=== PATIENT | male | born 1950 | race Caucasian/White ===

== ENCOUNTER → 2019-10-22 | Outpatient (CLI) | payer MEDICARE ==
--- NOTE | 2019-10-26 07:26 | PE ---
Nuclear medicine PET/CT HISTORY: Bladder cancer, initial Patient received 10.9 mCi F-18 FDG intravenously in delayed scanning was performed from the skull bas e to the mid thighs. Localization and attenuation correction CT scan was performed No comparisons Neck and chest: There is no cervical or supraclavicular adenopathy. No mediastinal, axillary, or chaparro r adenopathy. Some mild coronary artery calcifications are present. There is no pleural pericardial e ffusion. Prominence of pulmonary artery could be due to pulmonary artery hypertension. There is no ev ident lung mass. No suspicious hypermetabolic uptake. 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 ABDOMEN: No evident liver mass or retroperitoneal adenopathy. Patient is post left nephrectomy. Surgi trey clips are present. Right kidney shows a probable cortical cyst at the lower pole measuring 17 mm. Distal aortic aneurysm at 3.6 cm is noted. Urinary bladder shows some mild increased soft tissue tow ards the level of the trigone on the left. Cannot state as to whether there is increased uptake at th is level due to the urinary uptake. There is a focus of increased uptake within the posterior prostat e on the right, SUV 4.2. No pelvic adenopathy or inguinal adenopathy. Osseous structures show no hypermetabolic uptake. Degenerative disc changes are present in the lower lumbar spine, there is facet arthropathy. IMPRESSION: Postop changes. FDG avid focus within the posterior aspect prostate on the right. Finding s in the chest is described. Some questionable soft tissue, thickening along the posterior lateral bl adder on the left could be postprocedural but is indeterminate.
== END | disposition home or self-care (01) ==
LOC: RADPETMAIN 13:07
PROVIDERS: ATTEND Internal Medicine Hematology & Oncology
DX: C67.2 Malignant neoplasm of lateral wall of bladder (principal); Z98.890 Other specified postprocedural states
CPT/HCPCS: 78815; A9552

== ENCOUNTER → 2019-11-16 | Day surgery (SDC) | payer MEDICARE ==
[2019-11-15 09:07] VITALS: BMI 30.2
[~2019-11-16] MED LIST: CLINDAMYCIN 600 MG in DEXTROSE 5% IN WATER 50 ML IVPB STA; DEXAMETHASONE SOD PHOSPHATE 10 MG/ML 1 ML VIAL IV ONE; GLYCOPYRROLATE 0.2 MG/ML 2 ML VIAL ONE; HEPARIN SODIUM,PORCINE 100 UNIT/ML 5 ML VIAL IV ONE; HEPARIN SODIUM,PORCINE 5,000 UNIT/ML 1 ML VIAL SQ STA; LACTATED RINGERS 1,000 ML IV SCH; LIDOCAINE 1% (10MG/ML) FOR IV START INTRADERMA PRN; LIDOCAINE 1% INJ 10MG/ML (20 ML MDV) ONE; LIDOCAINE 1% INJ 10MG/ML (20 ML MDV) SQ ONE; MIDAZOLAM 2 MG/2 ML VIAL ONE; NALOXONE 0.4 MG/ML 1 ML VIAL IV PRN; ONDANSETRON 4 MG/2 ML VIAL IVP ONE; PROPOFOL 10 MG/ML 20 ML VIAL IV ONE; Pre Op ABX Message 1 EACH MISC MISCELLANE ONE; ePHEDrine SULFATE/0.9% NACL/PF 50 MG/5 ML SYRINGE IV ONE; fentaNYL (PF) 50 MCG/ML 2 ML AMP ONE
--- NOTE | 2019-11-16 14:47 | P.GSHP ---
History of Present Illness H&P Date: 11/16/19 Chief Complaint: Bladder cancer 69-year-old male here today for Port-A-Cath placement. Patient recently diagnosed with bladder cancer. Starting chemotherapy next week. He has not had a port previously. Past Medical History Past Medical History: Atrial Flutter, Asthma, Cancer, COPD, Hypertension, Osteoarthritis (OA), Renal Disease, Sleep Apnea/CPAP/BIPAP, Thyroid Disorder Additional Past Medical History / Comment(s): PAST HX A-FLUTTER-09/29/18, STAGE 2 CKD, GRAVE'S DISEASE, HX BLADDER CANCER. CHRONIC BACK PAIN, History of Any Multi-Drug Resistant Organisms: None Reported Past Surgical History: Cardiac Ablation, Orthopedic Surgery, Tonsillectomy Additional Past Surgical History / Comment(s): BILAT-CTR,. LT EAR SX. BILAT KN EE SCOPES, LT KIDNEY DONATED, BLADDER TUMOR REMOVED, COLONOSCOPY AND EGD Past Anesthesia/Blood Transfusion Reactions: No Reported Reaction Smoking Status: Current every day smoker - Past Family History Brother(s) Family Medical History: Cancer Medications and Allergies Home Medications Medication Instructions Recorded Confirmed Type Aspirin [Adult Low Dose Aspirin EC] 81 mg PO DAILY 11/15/19 11/16/19 History Hydrochlorothiazide 12.5 mg PO DAILY 11/15/19 11/16/19 History Losartan [Cozaar] 50 mg PO DAILY 11/15/19 11/16/19 History Methimazole 10 mg PO MOTUWETHFRSA 11/15/19 11/16/19 History Sotalol [Betapace] 60 mg PO QAM 11/15/19 11/16/19 History Sotalol [Betapace] 120 mg PO HS 11/15/19 11/16/19 History Allergies Allergy/AdvReac Type Severity Reaction Status Date / Time bee venom protein (honey bee) Allergy Anaphylaxis Verified 11/16/19 13:16 cefaclor [From [facility]] Allergy Rash/Hives Verified 11/16/19 13:16 ibuprofen Allergy only has 1 Verified 11/16/19 13:16 kidney morphine AdvReac Nausea & Verified 11/16/19 13:16 Vomiting Surgical - Exam Vital Signs Temp Pulse Resp BP Pulse Ox 98.3 F 97 18 139/77 97 11/16/19 13:19 11/16/19 13:19 11/16/19 13:19 11/16/19 13:19 11/16/19 13:19 Physical exam: General: Well-developed, well-nourished HEENT: Normocephalic, sclerae nonicteric Abdomen: Nontender, nondistended Extremities: No edema Neuro: Alert and oriented Assessment and Plan (1) Bladder cancer Narrative/Plan: 69-year-old male with bladder cancer. We'll proceed with Port-A-Cath placement at this time. Risks of bleeding, infection, DVT, pneumothorax, catheter malfunction, anesthesia related complications were discussed. The patient und erstands and wishes to proceed. Current Visit: Yes Status: Acute Code(s): C67.9 - MALIGNANT NEOPLASM OF BLADDER, UNSPECIFIED SNOMED Code(s): 563676208
[2019-11-16 16:03] VITALS: TEMP 96.9
--- NOTE | 2019-11-16 16:33 | FL ---
Fluoroscopy INDICATION: Pain FINDINGS: Fluoroscopy time: 4 seconds. Images obtained: 2. IMPRESSIONS: 1. Documentation of fluoroscopy.
--- NOTE | 2019-11-16 16:35 | XR ---
EXAMINATION TYPE: XR chest 1V confirm line [facility] DATE OF EXAM: 11/16/2019 COMPARISON: None INDICATION: Catheter placement TECHNIQUE: Single frontal view of the chest is obtained. FINDINGS: The heart size is normal. The pulmonary vasculature is normal. The lungs are clear. No pneumothorax is evident. Catheter is been placed on the right with the tip in the superior vena ca va region. IMPRESSION: 1. No pneumothorax post right-sided catheter placement. Tip is within the region of the superior vena cava.
[2019-11-16 16:36] VITALS: RESP 16
[2019-11-16 17:04] VITALS: BP 116/75; PULSE 66
--- NOTE | 2019-11-16 20:51 | P.OP ---
Date of Procedure: 11/16/19 Procedure(s) Performed: PREOPERATIVE DIAGNOSIS: Bladder cancer POSTOPERATIVE DIAGNOSIS: Same PROCEDURE: Port-A-Cath placement with fluoroscopic and ultrasound guidance SURGEON: Denisha EBL: Minimal ANESTHESIA: General COMPLICATIONS: None OPERATIVE PROCEDURE: Patient was brought and placed on the operative table in the supine position. The patient was sedated per anesthesia that time. The chest and neck were prepped and draped in usual sterile fashion. The ultrasound probe was used to identify the location of the right internal jugular vein. The skin was localized with lidocaine. The Seldinger needle was advanced into the IJ under ultrasound guidance. The wire was advanced through the needle under fluoroscopic guidance into the superior vena cava. A port pocket was created in the right infraclavicular location. The catheter was tunneled from the wire entrance site to the port pocket. The port was then connected to the catheter. The dilator introducer was threaded over the guidewire. The guidewire and dilator were then removed. The catheter was advanced through the introducer and introducer was then removed. The tip was seen to be in the right atrial junction via fluoroscopy. A picture of the radiograph showing the tip at the radial digital junction was taken. Port was flushed with both saline and a Hep- Lock solution. There was good flow both in and out of the port. The port was sutured in underlying tissues using 3-0 silk sutures. The subcutaneous tissues were reapproximated using 3-0 Vicryl sutures and the skin at both locations using 4-0 Monocryl sutures. Skin glue and sterile dressings then applied. DISPOSITION: Stable to recovery room
== END ==
LOC: OR 13:05
PROVIDERS: ATTEND Surgery
DX: C67.9 Malignant neoplasm of bladder, unspecified (principal); I48.91 Unspecified atrial fibrillation; J44.9 Chronic obstructive pulmonary disease, unspecified; M19.90 Unspecified osteoarthritis, unspecified site; E05.00 Thyrotoxicosis with diffuse goiter without thyrotoxic crisis or storm; I12.9 Hypertensive chronic kidney disease with stage 1 through stage 4 chronic kidney disease, or unspecified chronic kidney disease; N18.2 Chronic kidney disease, stage 2 (mild); G89.29 Other chronic pain; M54.9 Dorsalgia, unspecified; F17.200 Nicotine dependence, unspecified, uncomplicated; Z79.899 Other long term (current) drug therapy; Z88.5 Allergy status to narcotic agent; Z88.1 Allergy status to other antibiotic agents; Z88.6 Allergy status to analgesic agent; Z98.890 Other specified postprocedural states; Z90.89 Acquired absence of other organs; Z80.9 Family history of malignant neoplasm, unspecified; Z79.82 Long term (current) use of aspirin; Z91.030 Bee allergy status; Z52.4 Kidney donor
CPT/HCPCS: 77001; 36561; J1644; J1642; J1100; J2405; J2001

== ENCOUNTER 2019-12-07 07:55 | Emergency (ER) | payer MEDICARE ==
[2019-12-07 08:04] VITALS: TEMP 97.7
[2019-12-07 08:25] VITALS: RESP 18
[2019-12-07] MEDS ORDERED: SODIUM CHLORIDE 0.9% 1,000 ML IV STA (08:28)
--- NOTE | 2019-12-07 08:31 | ED ---
General Adult HPI - General Chief complaint: Nausea/Vomiting/Diarrhea Stated complaint: SOB/cancer pt Time Seen by Provider: 12/07/19 08:10 Source: patient, RN notes reviewed Mode of arrival: wheelchair Limitations: no limitations - History of Present Illness Initial comments: This a 69-year-old male presents emergency Department chief complaint of diar heather, chest pain. Patient states symptoms started around 2 AM. Patient states that persistent profuse watery diarrheal denies any melanotic stools denies any hematochezia. Patient states that slight nausea only takes chronic Zofran. Patient denies any chills. Patient does admit that he is currently being treated for bladder cancer is receiving chemotherapy and radiation last chemo last week. Patient states his oncologist is Dr. Clement. Patient states he has no bowel pain other than mild cramping. Patient does admit that is a smoker has chronic shortness breath. COPD. Patient states his pain in his chest is different. Patient denies any headache or dizziness. Patient states that is not had diarrhea associated with his other chemotherapeutic treatments. - Related Data Home Medications Medication Instructions Recorded Confirmed Aspirin [Adult Low Dose Aspirin EC] 81 mg PO DAILY 11/15/19 11/16/19 Hydrochlorothiazide 12.5 mg PO DAILY 11/15/19 11/16/19 Losartan [Cozaar] 50 mg PO DAILY 11/15/19 11/16/19 Methimazole 10 mg PO MOTUWETHFRSA 11/15/19 11/16/19 Sotalol [Betapace] 60 mg PO QAM 11/15/19 11/16/19 Sotalol [Betapace] 120 mg PO HS 11/15/19 11/16/19 Allergies Allergy/AdvReac Type Severity Reaction Status Date / Time bee venom protein (honey bee) Allergy Anaphylaxis Verified 12/07/19 08:00 [facility] Allergy Rash/Hives Verified 12/07/19 08:00 ibuprofen Allergy only has 1 Verified 12/07/19 08:00 kidney morphine AdvReac Nausea & Verified 12/07/19 08:00 Vomiting Review of Systems ROS Statement: Those systems with pertinent positive or pertinent negative responses have been documented in the HPI. ROS Other: All systems not noted in ROS Statement are negative. Past Medical History Past Medical History: Asthma, COPD Additional Past Medical History / Comment(s): bladder CA, pt states he donated one kidney History of Any Multi-Drug Resistant Organisms: None Reported Past Surgical History: Unable to Obtain Past Psychological History: No Psychological Hx Reported Smoking Status: Current every day smoker Past Alcohol Use History: None Reported Past Drug Use History: None Reported General Exam Limitations: no limitations General appearance: alert, in no apparent distress Head exam: Present: atraumatic, normocephalic, normal inspection Eye exam: Present: normal appearance, PERRL, EOMI. Absent: scleral icterus, conjunctival injection, periorbital swelling ENT exam: Present: normal exam, normal oropharynx, mucous membranes moist Neck exam: Present: normal inspection, full ROM. Absent: tenderness, m eningismus, lymphadenopathy Respiratory exam: Present: wheezes. Absent: normal lung sounds bilaterally, respiratory distress, rales, rhonchi, stridor Cardiovascular Exam: Present: regular rate, normal rhythm, normal heart sounds. Absent: systolic murmur, diastolic murmur, rubs, gallop, clicks GI/Abdominal exam: Present: soft, tenderness (Mild abdominal tenderness), normal bowel sounds. Absent: distended, guarding, rebound, rigid Back exam: Absent: CVA tenderness (R), CVA tenderness (L) Neurological exam: Present: alert, oriented X3, CN II-XII intact Skin exam: Present: warm, dry, intact, normal color. Absent: rash Course Vital Signs 12/07/19 12/07/19 12/07/19 08:01 08:23 10:10 Temperature 97.7 F Pulse Rate 68 60 59 L Respiratory 16 18 18 Rate Blood Pressure 99/60 107/69 100/85 O2 Sat by Pulse 99 100 99 Oximetry EKG Findings - EKG Comments: EKG Findings:: EKG performed at 8:15 normal sinus rhythm rate of 61 MS 160 QRS 100 QT/[id number] Medical Decision Making - Medical Decision Making 61-year-old male presented for diarrhea, chest pain shortness breath. Patient's had labs CT of the chest ordered to rule out PE patient refuses CT of the chest. I did have a long discussion along with polysom tech regarding the need for this study that there could possibly be a blood clot given that he has cancer, chest pain or shortness of breath no other cause at this time. Patient is angry, understands the risk that he may from a blood clot in his lung. Patient states that he just wants to go home. I did recommend admission to the hospital again patient refuses and signs out AGAINST MEDICAL ADVICE understanding that his risk his . - Lab Data Result diagrams: 12/07/19 10:03 12/07/19 10:03 Lab Results 12/07/19 12/07/19 12/07/19 Range/Units 10:03 10:03 10:03 WBC 6.2 (3.8-10.6) k/uL RBC 4.33 (4.30-5.90) m/uL Hgb 13.0 (13.0-17.5) gm/dL Hct 41.0 (39.0-53.0) % MCV 94.8 (80.0-100.0) fL MCH 30.1 (25.0-35.0) pg MCHC 31.7 (31.0-37.0) g/dL RDW 14.4 (11.5-15.5) % Plt Count 187 (150-450) k/uL Neutrophils % 75 % Lymphocytes % 20 % Monocytes % 4 % Eosinophils % 1 % Basophils % 0 % Neutrophils # 4.6 (1.3-7.7) k/uL Lymphocytes # 1.2 (1.0-4.8) k/uL Monocytes # 0.2 (0-1.0) k/uL Eosinophils # 0.0 (0-0.7) k/uL Basophils # 0.0 (0-0.2) k/uL PT 9.8 (9.0-12.0) sec INR 0.9 (<1.2) APTT 23.6 (22.0-30.0) sec Sodium 130 L (137-145) mmol/L Potassium 4.6 (3.5-5.1) mmol/L Chloride 98 (98-107) mmol/L Carbon Dioxide 26 (22-30) mmol/L Anion Gap 6 mmol/L BUN 34 H (9-20) mg/dL Creatinine 0.88 (0.66-1.25) mg/dL Est GFR (CKD-EPI)AfAm >90 (>60 ml/min/1.73 sqM) Est GFR (CKD-EPI)NonAf 89 (>60 ml/min/1.73 sqM) Glucose 84 (74-99) mg/dL Plasma Lactic Acid Fabricio (0.7-2.0) mmol/L Calcium 8.3 L (8.4-10.2) mg/dL Total Bilirubin 0.8 (0.2-1.3) mg/dL AST 15 L (17-59) U/L ALT 14 (4-49) U/L Alkaline Phosphatase 45 (38-126) U/L Creatine Kinase <20 L (55-170) U/L Troponin I (0.000-0.034) ng/mL Total Protein 6.1 L (6.3-8.2) g/dL Albumin 3.5 (3.5-5.0) g/dL Amylase 124 H (30-110) U/L Lipase 170 (23-300) U/L Urine Color Urine Appearance (Clear) Urine pH (5.0-8.0) Ur Specific [place] (1.001-1.035) Urine Protein (Negative) Urine Glucose (UA) (Negative) Urine Ketones (Negative) Urine Blood (Negative) Urine Nitrite (Negative) Urine Bilirubin (Negative) Urine Urobilinogen (<2.0) mg/dL Ur Leukocyte Esterase (Negative) 12/07/19 12/07/19 12/07/19 Range/Units 10:03 10:03 10:17 WBC (3.8-10.6) k/uL RBC (4.30-5.90) m/uL Hgb (13.0-17.5) gm/dL Hct (39.0-53.0) % MCV (80.0-100.0) fL MCH (25.0-35.0) pg MCHC (31.0-37.0) g/dL RDW (11.5-15.5) % Plt Count (150-450) k/uL Neutrophils % % Lymphocytes % % Monocytes % % Eosinophils % % Basophils % % Neutrophils # (1.3-7.7) k/uL Lymphocytes # (1.0-4.8) k/uL Monocytes # (0-1.0) k/uL Eosinophils # (0-0.7) k/uL Basophils # (0-0.2) k/uL PT (9.0-12.0) sec INR (<1.2) APTT (22.0-30.0) sec Sodium (137-145) mmol/L Potassium (3.5-5.1) mmol/L Chloride (98-107) mmol/L Carbon Dioxide (22-30) mmol/L Anion Gap mmol/L BUN (9-20) mg/dL Creatinine (0.66-1.25) mg/dL Est GFR (CKD-EPI)AfAm (>60 ml/min/1.73 sqM) Est GFR (CKD-EPI)NonAf (>60 ml/min/1.73 sqM) Glucose (74-99) mg/dL Plasma Lactic Acid Fabricio 0.8 (0.7-2.0) mmol/L Calcium (8.4-10.2) mg/dL Total Bilirubin (0.2-1.3) mg/dL AST (17-59) U/L ALT (4-49) U/L Alkaline Phosphatase (38-126) U/L Creatine Kinase (55-170) U/L Troponin I <0.012 (0.000-0.034) ng/mL Total Protein (6.3-8.2) g/dL Albumin (3.5-5.0) g/dL Amylase (30-110) U/L Lipase (23-300) U/L Urine Color Light Yellow Urine Appearance Clear (Clear) Urine pH 5.0 (5.0-8.0) Ur Specific [place] 1.014 (1.001-1.035) Urine Protein Negative (Negative) Urine Glucose (UA) Negative (Negative) Urine Ketones Negative (Negative) Urine Blood Negative (Negative) Urine Nitrite Negative (Negative) Urine Bilirubin Negative (Negative) Urine Urobilinogen <2.0 (<2.0) mg/dL Ur Leukocyte Esterase Negative (Negative) Disposition Clinical Impression: Diarrhea, Chest pain, Bladder cancer Disposition: Left Against Medical Advice Referrals: Mayito Baker MD [Primary Care Provider] - 1-2 days
[2019-12-07 10:10] VITALS: BP 100/85; PULSE 59
[2019-12-07 10:17] LABS: Basophils % (A) 0 %; Eosinophils % (A) 1 %; Lymphocytes # (A) 1.2 k/uL (1.0-4.8); Lymphocytes % (A) 20 %; MCH 30.1 pg (25.0-35.0); MCHC 31.7 g/dL (31.0-37.0); MCV 94.8 fL (80.0-100.0); Mean Platelet Volume 7.4; Monocytes # (A) 0.2 k/uL (0-1.0); Monocytes % (A) 4 %; Neutrophils # (A) 4.6 k/uL (1.3-7.7); Neutrophils % (A) 75 %; Platelet Count 187 k/uL (150-450); RBC 4.33 m/uL (4.30-5.90); RDW 14.4 % (11.5-15.5); WBC 6.2 k/uL (3.8-10.6)
[2019-12-07 10:26] LABS: ALT 14 U/L (4-49); AST 15 U/L (17-59); African American GFR (CKD) >90 (>60 ml/min/1.73 sqM); Albumin 3.5 g/dL (3.5-5.0); Alkaline Phosphatase 45 U/L (38-126); Amylase 124 U/L (30-110); Anion Gap 6 mmol/L; Blood Urea Nitrogen 34 mg/dL (9-20); Calcium 8.3 mg/dL (8.4-10.2); Carbon Dioxide 26 mmol/L (22-30); Chloride 98 mmol/L (98-107); Creatine Kinase <20 U/L (55-170); Glucose 84 mg/dL (74-99); Non-African American GFR(CKD) 89 (>60 ml/min/1.73 sqM); Potassium 4.6 mmol/L (3.5-5.1); Sodium 130 mmol/L (137-145); Total Bilirubin 0.8 mg/dL (0.2-1.3); Total Protein 6.1 g/dL (6.3-8.2)
[2019-12-07 10:29] LABS: INR 0.9 (<1.2); Partial Thromboplastin Time 23.6 sec (22.0-30.0); Prothrombin Time 9.8 sec (9.0-12.0)
[2019-12-07 10:39] LABS: Appearance,Urine Clear (Clear); Bilirubin,Urine Negative (Negative); Blood,Urine Negative (Negative); Color,Urine Light Yellow; Glucose,Urine (UA) Negative (Negative); Ketones,Urine Negative (Negative); Leukocyte Esterase,Urine Negative (Negative); Nitrite,Urine Negative (Negative); Protein,Urine Negative (Negative); Specific Gravity,Urine 1.014 (1.001-1.035); Urobilinogen,Urine <2.0 mg/dL (<2.0)
--- NOTE | 2019-12-07 10:41 | XR ---
EXAMINATION TYPE: XR chest 2V DATE OF EXAM: 12/07/2019 COMPARISON: 11/16/2019 HISTORY: 69-year-old male with chest pain TECHNIQUE: PA and lateral views FINDINGS: Heart upper limits of normal in size. Aorta and pulmonary vasculature within normal limits. Right ant erior chest wall injection port with catheter tip at the mid SVC level. Some strandy areas of atelect asis. No consolidation or pleural effusion is seen. Either postsurgical or posttraumatic deformity to the distal right clavicle, unchanged. IMPRESSION: Some strandy areas of atelectasis. No definite acute process seen.
== END 2019-12-07 11:32 | disposition left against medical advice (07) ==
LOC: EC 07:55
DX: C67.9 Malignant neoplasm of bladder, unspecified (principal); R07.9 Chest pain, unspecified; R19.7 Diarrhea, unspecified; J44.9 Chronic obstructive pulmonary disease, unspecified; F17.200 Nicotine dependence, unspecified, uncomplicated; Z79.899 Other long term (current) drug therapy; Z79.82 Long term (current) use of aspirin; Z88.6 Allergy status to analgesic agent; Z88.5 Allergy status to narcotic agent; Z91.038 Other insect allergy status; Z88.1 Allergy status to other antibiotic agents; Z53.29 Procedure and treatment not carried out because of patient's decision for other reasons
CPT/HCPCS: 36415; 71046; 80053; 81003; 82150; 82550; 83605; 83690; 84484; 85025; 85610; 85730; 93005; 96360; 99285

== ENCOUNTER → 2020-06-22 | Outpatient (CLI) | payer MEDICARE ==
--- NOTE | 2020-06-22 13:55 | XR ---
EXAMINATION TYPE: XR cervical spine comp DATE OF EXAM: 06/22/2020 COMPARISON: None HISTORY: 69-year-old male M5 4.2, cervicalgia TECHNIQUE: 5 views FINDINGS: Limited odontoid view shows no gross abnormality. No predental space widening or prevertebral soft ti ssue swelling. Degenerative change at the C1 dens articulation. There is grade 1 anterolisthesis at C 5-C6. Moderate distention plate degenerative change lower cervical spine. Multilevel facet and uncove rtebral joint arthropathy. Changes result in variable mild bony neuroforaminal narrowing on both side s, more moderate on the left at C3-C4 and C4-C5. The cervicothoracic junction is obscured by the fran ent's shoulders and not assessed. Partially visualized right anterior chest wall injection port. IMPRESSION: Moderate spondylotic change especially mid and lower cervical spine. Degenerative grade 1 anterolisth esis C5-C6. Variable mild bony neuroforaminal narrowing throughout, moderate on the left at C3-C4 and C4-C5. Note that the cervicothoracic junction is obscured by the patient's shoulders and not assessed.
== END | disposition home or self-care (01) ==
LOC: RADXRMAIN 13:29
PROVIDERS: ATTEND Nurse Practitioner Adult Health
DX: M48.02 Spinal stenosis, cervical region (principal); M43.12 Spondylolisthesis, cervical region; M47.812 Spondylosis without myelopathy or radiculopathy, cervical region; C67.9 Malignant neoplasm of bladder, unspecified; N18.9 Chronic kidney disease, unspecified
CPT/HCPCS: 72050

== ENCOUNTER → 2020-06-30 | Outpatient (CLI) | payer MEDICARE ==
--- NOTE | 2020-06-30 14:24 | PE ---
Nuclear medicine PET/CT HISTORY: C 67.9 Bladder carcinoma, subsequent, lung nodule, R 91.1 Patient received 11.9 mCi F-18 FDG intravenously delayed scanning was performed from the skull base t o the mid thighs. Localization and attenuation correction CT scan was performed. Correlation prior nuclear medicine PET/CT 10/22/2019 Chest and neck: Anterior cervical chain shows an enlarged node is asymmetric on the left, axial image 49 short axis measurement is 17 mm, no suspicious uptake noted however. Noted more prominently than on prior exam but shows possible fatty hilus. There is no supraclavicular adenopathy. No pleural or p ericardial effusion. No mediastinal, axillary, or hilar adenopathy. No suspicious uptake. No evident lung mass. ABDOMEN: Aneurysmal dilation noted the 3.9 cm in the infrarenal location. No retroperitoneal adenopat hy. No suspicious uptake. No ascites. Patient shows post left nephrectomy change. Urinary bladder is small and shows a thickened wall posteriorly related to patient's diagnosis. No pelvic adenopathy or free fluid. Osseous structures show no suspicious uptake. IMPRESSION: Left cervical lymph node has increased slightly in size, there is no suspicious uptake id entified.
== END | disposition home or self-care (01) ==
LOC: RADPETMAIN 08:14
PROVIDERS: ATTEND Internal Medicine Hematology & Oncology
DX: C67.8 Malignant neoplasm of overlapping sites of bladder (principal); R59.0 Localized enlarged lymph nodes; R91.1 Solitary pulmonary nodule
CPT/HCPCS: 78815; A9552

== ENCOUNTER → 2020-07-19 | Outpatient (CLI) | payer MEDICARE ==
[2020-07-19 12:03] LABS: Basophils % (A) 0 %; Eosinophils # (A) 0.1 k/uL (0-0.7); Eosinophils % (A) 2 %; HCT 45.8 % (39.0-53.0); HGB 14.6 gm/dL (13.0-17.5); Lymphocytes # (A) 0.9 k/uL (1.0-4.8); Lymphocytes % (A) 19 %; MCH 31.3 pg (25.0-35.0); MCV 97.9 fL (80.0-100.0); Mean Platelet Volume 7.5; Monocytes # (A) 0.5 k/uL (0-1.0); Monocytes % (A) 10 %; Neutrophils # (A) 3.2 k/uL (1.3-7.7); Neutrophils % (A) 64 %; Platelet Count 167 k/uL (150-450); RBC 4.67 m/uL (4.30-5.90); WBC 4.9 k/uL (3.8-10.6)
[2020-07-19 12:19] LABS: Calcium 9.1 mg/dL (8.4-10.2); Potassium 4.6 mmol/L (3.5-5.1)
== END | disposition home or self-care (01) ==
LOC: LABPAT 10:30
PROVIDERS: ATTEND Urology
DX: Z01.818 Encounter for other preprocedural examination (principal); C67.9 Malignant neoplasm of bladder, unspecified
CPT/HCPCS: 80048; 85025

== ENCOUNTER 2020-07-27 07:38 | Day surgery (SDC) | payer MEDICARE ==
[2020-07-21 13:58] VITALS: BMI 32.2
--- NOTE | 2020-07-27 06:10 | P.GSHP ---
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 He was treated with chemoradiation. Cystoscopy in February 2020 showed mild edema over the right hemitrigone, and repeat cystoscopy in May 2020 showed small tumors overlying the left ureteral orifice. Urine cytology was negative. The patient chose not to undergo bladder tumor resection, but has recently experienced hematuria and is now agreeable to undergoing a TURBT. 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 History of Any Multi-Drug Resistant Organisms: None Reported Past Surgical History: Unable to Obtain Past Psychological History: No Psychological Hx Reported Past Alcohol Use History: None Reported Past Drug Use History: None Reported - Past Family History Mother Family Medical History: Unable to Obtain Brother(s) Family Medical History: Cancer Medications and Allergies Home Medications Medication Instructions Recorded Confirmed Type Aspirin [Adult Low Dose Aspirin EC] 81 mg PO DAILY 11/15/19 07/21/20 History Losartan [Cozaar] 50 mg PO DAILY 11/15/19 07/21/20 History Sotalol [Betapace] 60 mg PO QAM 11/15/19 07/21/20 History Sotalol [Betapace] 120 mg PO HS 11/15/19 07/21/20 History methIMAzole [Methimazole] 10 mg PO MOTUWETHFR 11/15/19 07/21/20 History Albuterol Inhaler [Ventolin Hfa 2 puff INHALATION RT-TID PRN 07/21/20 07/21/20 History Inhaler] Albuterol Nebulized [Ventolin 2.5 mg INHALATION Q6H PRN 07/21/20 07/21/20 History Nebulized] Allergies Allergy/AdvReac Type Severity Reaction Status Date / Time bee venom protein (honey bee) Allergy Anaphylaxis Verified 12/07/19 08:00 cefaclor [From [facility]] Allergy Rash/Hives Verified 12/07/19 08:00 ibuprofen Allergy only has 1 Verified 12/07/19 08:00 kidney morphine AdvReac Nausea & Verified 07/07/20 08:00 Vomiting Surgical - Exam - General well developed, well nourished, no distress - Respiratory normal respiratory effort - Genitourinary normal penis with no external lesions, testicles non-tender - Psychiatric oriented to time, oriented to person, oriented to place, speech is normal, memory intact Assessment and Plan (1) Malignant neoplasm of bladder, unspecified Status: Acute Code(s): C67.9 - MALIGNANT NEOPLASM OF BLADDER, UNSPECIFIED SNOMED Code(s): 492492579 Plan: Cystoscopy, TURBT. The procedure has been reviewed in detail with the patient and his daughter. They understand risks to include anesthesia, bleeding, infection, bladder perforation, and urinary retention.
[~2020-07-27 07:38] MED LIST changes: -CLINDAMYCIN 600 MG in DEXTROSE 5% IN WATER 50 ML IVPB STA; +CLINDAMYCIN 900 MG in DEXTROSE 5% IN WATER 50 ML IVPB PRN; -DEXAMETHASONE SOD PHOSPHATE 10 MG/ML 1 ML VIAL IV ONE; +GENTAMICIN 440 MG in SODIUM CHLORIDE 0.9% 100 ML IVPB PRN; -GLYCOPYRROLATE 0.2 MG/ML 2 ML VIAL ONE; -HEPARIN SODIUM,PORCINE 100 UNIT/ML 5 ML VIAL IV ONE; -HEPARIN SODIUM,PORCINE 5,000 UNIT/ML 1 ML VIAL SQ STA; +HYDROmorphone 0.5 MG/0.5 ML SYRINGE IVP PRN; -LACTATED RINGERS 1,000 ML IV SCH; -LIDOCAINE 1% INJ 10MG/ML (20 ML MDV) ONE; -LIDOCAINE 1% INJ 10MG/ML (20 ML MDV) SQ ONE; -MIDAZOLAM 2 MG/2 ML VIAL ONE; -NALOXONE 0.4 MG/ML 1 ML VIAL IV PRN; -PROPOFOL 10 MG/ML 20 ML VIAL IV ONE; -Pre Op ABX Message 1 EACH MISC MISCELLANE ONE; -ePHEDrine SULFATE/0.9% NACL/PF 50 MG/5 ML SYRINGE IV ONE; -fentaNYL (PF) 50 MCG/ML 2 ML AMP ONE
[2020-07-27] MEDS: LACTATED RINGERS 1,000 ML IV SCH ×2 (08:08→08:50)
[2020-07-27] MEDS ORDERED: GLYCOPYRROLATE 0.2 MG/ML 2 ML VIAL ONE (08:45)
[2020-07-27] MEDS ORDERED: PROPOFOL 10 MG/ML 20 ML VIAL IV ONE (08:45)
[2020-07-27] MEDS ORDERED: LIDOCAINE 1% INJ 10MG/ML (20 ML MDV) ONE (08:45)
[2020-07-27] MEDS ORDERED: SUCCINYLCHOLINE CHLORIDE 100 MG/5 ML SYR IV ONE (08:45)
[2020-07-27] MEDS ORDERED: fentaNYL (PF) 50 MCG/ML 2 ML AMP ONE (08:45)
[2020-07-27] MEDS ORDERED: WATER FOR INJECTION, STERILE 10 ML VIAL IV ONE (08:45)
[2020-07-27] MEDS ORDERED: ePHEDrine SULFATE/0.9% NACL/PF 50 MG/5 ML SYRINGE IV ONE (08:45)
--- NOTE | 2020-07-27 09:52 | P.OP ---
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 He was treated with chemoradiation. Cystoscopy in February 2020 showed mild edema over the right hemitrigone, and repeat cystoscopy in May 2020 showed small tumors overlying the left ureteral orifice. Urine cytology was negative. The patient chose not to undergo bladder tumor resection, but has recently experienced hematuria and is now agreeable to undergoing a TURBT. Operative Findings: Raised tissue left hemitrigone. Description of Procedure: The patient was taken in the operating room and placed in the dorsal lithotomy position, with his legs supported in Ross stirrups. The external genitalia was prepped and draped sterilely. The 25-[place] ACM[employer] resectoscope sheath was introduced into the bladder under direct vision. The prostate was partially obstructed. No urothelial changes were seen within the prostatic urethra. The bladder was inspected. The right ureteral orifice appeared normal, and clear urine effluxed from it. The left hemitrigone was raised. The left ureteral orifice was not identified. The remainder of the bladder appeared normal. Using the bipolar cutting loop, the left hemitrigone was resected down to the muscle. The left ureteral orifice was identified following resection, and clear urine effluxed from it. Excellent hemostasis was attained. Cauterization around the left ureteral orifice was avoided. The resected tissue was saved and sent for pathologic examination. The bladder was emptied and the resectoscope removed. The patient tolerated the procedure well. He was taken to the recovery room in stable condition.
[2020-07-27 10:08] VITALS: TEMP 96.8
[2020-07-27 11:38] VITALS: RESP 16
[2020-07-27] MEDS ORDERED: HYDROcodone/APAP 5-325MG 1 EACH TAB ONE (11:44)
[2020-07-27] MEDS ORDERED: HYDROcodone/APAP 5-325MG 1 EACH TAB PO ONE (11:45)
[2020-07-27 12:08] VITALS: BP 134/81; PULSE 61
== END 2020-07-27 12:21 | disposition home or self-care (01) ==
LOC: OR 07:38
PROVIDERS: ATTEND Urology
DX: C67.9 Malignant neoplasm of bladder, unspecified (principal); C80.1 Malignant (primary) neoplasm, unspecified; J44.9 Chronic obstructive pulmonary disease, unspecified; I48.91 Unspecified atrial fibrillation; Z90.5 Acquired absence of kidney; E07.9 Disorder of thyroid, unspecified; N28.9 Disorder of kidney and ureter, unspecified; Z80.9 Family history of malignant neoplasm, unspecified; F17.200 Nicotine dependence, unspecified, uncomplicated; Z99.81 Dependence on supplemental oxygen; K21.9 Gastro-esophageal reflux disease without esophagitis; Z79.82 Long term (current) use of aspirin; Z79.899 Other long term (current) drug therapy; Z88.5 Allergy status to narcotic agent; Z88.6 Allergy status to analgesic agent; Z88.1 Allergy status to other antibiotic agents; Z91.030 Bee allergy status
CPT/HCPCS: 88307; 52235; J2405; J2001; J3010; J1580; J0330; J2704

== ENCOUNTER → 2021-03-23 | Outpatient (CLI) | payer MEDICARE ==
--- NOTE | 2021-03-26 09:58 | PE ---
EXAMINATION TYPE: PET CT fusion skull to thigh DATE OF EXAM: 03/23/2021 COMPARISON: Prior PET/CT June 30, 2020 and older study October 22, 2019 HISTORY: History of bladder cancer diagnosed October 2018 with solitary pulmonary nodule TECHNIQUE: Following the intravenous administration of 10.75 mCi of F-18 FDG, whole body images are performed from the skull base to the midthigh. Images are reviewed on the computer in the coronal, a xial, and sagittal planes. Reconstructed rotating images are created on independent workstation and reviewed on the computer. A localization and attenuation correction CT is performed in conjunction with the PET scan. Blood glucose level equals 76. SCAN: Initial Scan FINDINGS: SKULL BASE AND NECK: No new areas of abnormal hypermetabolic uptake. CHEST, MEDIASTINUM, AND HILAR REGION: No new areas of abnormal hypermetabolic uptake. ABDOMEN AND PELVIS: Normal excretion including along course of right ureter. No new areas of abnormal hypermetabolic uptake. OSSEOUS STRUCTURES: No new areas of abnormal hypermetabolic uptake. OTHER CT: Stable right internal jugular Mediport catheter. Ascending aortic aneurysm up to 4.1 cm axi al image 91. There is tiny 4 mm posterior right upper lung nodule axial image 54. No hypermetabolic n odules. Mild calcified plaque in the abdominal aorta with up to 3.4 cm aneurysm maximum 170. Left kidney is surgically absent. Bladder shows new calcific density along the left posterior inferior aspect of unc ertain etiology with mild fat stranding and wall thickening redemonstrated. Correlate clinically. Pro state gland stable and upper limits of normal in size. IMPRESSION: No new areas of abnormal hypermetabolic uptake.
== END | disposition home or self-care (01) ==
LOC: RADPETMAIN 10:32
PROVIDERS: ATTEND Internal Medicine Hematology & Oncology
DX: C67.9 Malignant neoplasm of bladder, unspecified (principal); R91.1 Solitary pulmonary nodule
CPT/HCPCS: 78815; A9552

== ENCOUNTER → 2021-07-27 | Outpatient (CLI) | payer MEDICARE ==
--- NOTE | 2021-07-27 12:26 | XR ---
EXAMINATION TYPE: XR chest 2V DATE OF EXAM: 07/27/2021 COMPARISON: 12/07/2019 HISTORY: Shortness of breath TECHNIQUE: Frontal and lateral views of the chest are obtained. FINDINGS: Scattered senescent parenchymal changes noted. Hyperinflation compatible with COPD. No evidence for infiltrate. No evidence for atelectasis. Heart size is stable. Mediastinal structures are stable and grossly unremarkable. No evidence for hilar prominence. Degenerative changes dorsal spine. IMPRESSION: 1. No evidence for acute pulmonary disease.
== END | disposition home or self-care (01) ==
LOC: RADXRMAIN 10:58
PROVIDERS: ATTEND Physical Medicine & Rehabilitation
DX: C67.9 Malignant neoplasm of bladder, unspecified (principal); R44.3 Hallucinations, unspecified; E87.1 Hypo-osmolality and hyponatremia; R91.1 Solitary pulmonary nodule
CPT/HCPCS: 71046

== ENCOUNTER 2021-07-31 10:30 | Inpatient (IN) | payer MEDICARE ==
--- NOTE | 2021-07-31 11:40 | XR ---
EXAMINATION TYPE: XR chest 2V DATE OF EXAM: 07/31/2021 COMPARISON: Chest x-ray July 27, 2021 HISTORY: Recent COVID with difficulty breathing. History of bladder cancer. TECHNIQUE: Frontal and lateral views of the chest are obtained. FINDINGS: Stable right internal jugular Mediport catheter. There is right basilar opacity. Left lung remains clear. No pleural effusion or pneumothorax seen bilaterally. The cardiac silhouette size is m ildly enlarged. The osseous structures are intact. IMPRESSION: Right basilar opacity could reflect acute infiltrate and/or atelectasis.
[2021-07-31] MEDS ORDERED: IPRATROPIUM-ALBUTEROL 3 ML NEB INHALATION STA (11:50)
[2021-07-31] MEDS ORDERED: methylPREDNISolone SOD SUCCI 125 MG/2 ML VIAL IV STA (11:51)
[2021-07-31] MEDS ORDERED: FUROSEMIDE 10 MG/ML 10 ML VIAL IV STA (11:51)
--- NOTE | 2021-07-31 12:17 | ED ---
General Adult HPI - General Chief complaint: Shortness of Breath Stated complaint: TJ Time Seen by Provider: 07/31/21 10:55 Source: patient, RN notes reviewed, old records reviewed Mode of arrival: ambulatory Limitations: no limitations - History of Present Illness Initial comments: This is a 70-year-old male with past medical history significant for COPD and son states he also had a history of hypercarbia. Son states is often had to be placed on BiPAP. Patient states the difficulty breathing is been ongoing for the last week or so but last night he started having some altered mental status and being extremely fatigued. Patient has had no recent fever chills per patient denies any chest pain or palpitations. Patient has had no abdominal manolo n patient denies nausea vomiting or diarrhea. Patient has increased swelling to both legs. Patient denies any recent injury or trauma. - Related Data Home Medications Medication Instructions Recorded Confirmed Aspirin [Adult Low Dose Aspirin EC] 81 mg PO DAILY 11/15/19 07/27/20 Losartan [Cozaar] 50 mg PO DAILY 11/15/19 07/27/20 Sotalol [Betapace] 60 mg PO QAM 11/15/19 07/27/20 Sotalol [Betapace] 120 mg PO HS 11/15/19 07/27/20 methIMAzole [Methimazole] 10 mg PO MOTUWETHFR 11/15/19 07/27/20 Albuterol Inhaler [Ventolin Hfa 2 puff INHALATION RT-TID PRN 07/21/20 07/27/20 Inhaler] Albuterol Nebulized [Ventolin 2.5 mg INHALATION Q6H PRN 07/21/20 07/27/20 Nebulized] Allergies Allergy/AdvReac Type Severity Reaction Status Date / Time bee venom protein (honey bee) Allergy Anaphylaxis Verified 07/31/21 10:45 cefaclor [From Ceclor] Allergy Rash/Hives Verified 07/31/21 10:45 ibuprofen Allergy only has 1 Verified 07/31/21 10:45 kidney morphine AdvReac Nausea & Verified 07/31/21 10:45 Vomiting Review of Systems ROS Statement: Those systems with pertinent positive or pertinent negative responses have been documented in the HPI. ROS Other: All systems not noted in ROS Statement are negative. 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 Patient is nontoxic and well- hydrated and is in moderate distress. ENT: Neck is soft and supple. No significant lymphadenopathy is noted. Oropharynx is clear. Moist mucous membranes. Neck has full range of motion without eliciting any pain. EYES: The sclera were anicteric and conjunctiva were pink and moist. Extraocular movements were intact and pupils were equal round and reactive to light. Ey elids were unremarkable. PULMONARY: Unlabored respirations. Good breath sounds bilaterally. No audible rales rhonchi or wheezing was noted. CARDIOVASCULAR: Patient is tachycardic at about 120 beats a minute. ABDOMEN: Patient is significantly diminished breath sounds bilaterally. SKIN: Skin is clear with no lesions or rashes and otherwise unremarkable. NEUROLOGIC: Patient is alert and oriented x3. Cranial nerves II through XII are grossly intact. Motor and sensory are also intact. Normal speech, volume and content. Symmetrical smile. MUSCULOSKELETAL: Normal extremities with adequate strength and full range of motion. Patient has 2+ edema bilaterally LYMPHATICS: No significant lymphadenopathy is noted PSYCHIATRIC: Normal psychiatric evaluation. Limitations: no limitations Course Vital Signs 07/31/21 07/31/21 07/31/21 10:41 12:00 12:05 Temperature 97.2 F L Pulse Rate 94 124 H Respiratory 18 20 20 Rate Blood Pressure 157/90 148/112 O2 Sat by Pulse 90 L 99 Oximetry 07/31/21 07/31/21 07/31/21 12:08 12:30 12:46 Temperature Pulse Rate 116 H 114 H 90 Respiratory Rate Blood Pressure 148/112 O2 Sat by Pulse 100 100 Oximetry 07/31/21 07/31/21 13:00 13:17 Temperature Pulse Rate 95 Respiratory Rate Blood Pressure 117/91 O2 Sat by Pulse 100 Oximetry Medical Decision Making - Medical Decision Making EKG shows atrial fibrillation at 86 bpm QRS is 109 QT interval 358 QTC is 411. Patient's EKG shows no ST segment elevation or depression. Chest x-ray shows no acute abnormality. Patient was placed on BiPAP immediately. Patient had an ABG dinner showed a pCO2 of 85. I went back in and reevaluate the patient he was doing much better and was more alert. Patient did receive 3 albuterol treatments with Atrovent as well as Solu-Medrol in the emergency department. Albuterol and Solu-Medrol will be continued on a floor as well as antibiotics. Patient did get a gram of [facility] emergency department. I spoke with [facility] hospitalist agreed to admit the patient admitted the patient wrote admitting orders. - Lab Data Result diagrams: 07/31/21 12:03 07/31/21 12:03 Lab Results 07/31/21 07/31/21 07/31/21 Range/Units 12:03 12:03 12:03 WBC 6.2 (3.8-10.6) k/uL RBC 4.62 (4.30-5.90) m/uL Hgb 15.2 (13.0-17.5) gm/dL Hct 44.6 (39.0-53.0) % MCV 96.5 (80.0-100.0) fL MCH 32.9 (25.0-35.0) pg MCHC 34.1 (31.0-37.0) g/dL RDW 15.7 H (11.5-15.5) % Plt Count 170 (150-450) k/uL MPV 8.1 Neutrophils % 73 % Lymphocytes % 14 % Monocytes % 8 % Eosinophils % 1 % Basophils % 1 % Neutrophils # 4.5 (1.3-7.7) k/uL Lymphocytes # 0.9 L (1.0-4.8) k/uL Monocytes # 0.5 (0-1.0) k/uL Eosinophils # 0.0 (0-0.7) k/uL Basophils # 0.0 (0-0.2) k/uL PT 10.9 (9.0-12.0) sec INR 1.0 (<1.2) APTT 31.8 H (22.0-30.0) sec Sample Site ABG pH (7.35-7.45) ABG pCO2 (35-45) mmHg ABG pO2 (83-108) mmHg ABG HCO3 (21-25) mmol/L ABG Total CO2 (19-24) mmol/L ABG O2 Saturation (94-97) % ABG Base Excess mmol/L Ross Test FiO2 % Sodium 128 L (137-145) mmol/L Potassium 4.2 (3.5-5.1) mmol/L Chloride 90 L (98-107) mmol/L Carbon Dioxide 35 H (22-30) mmol/L Anion Gap 3 mmol/L BUN 11 (9-20) mg/dL Creatinine 0.83 (0.66-1.25) mg/dL Est GFR (CKD-EPI)AfAm >90 (>60 ml/min/1.73 sqM) Est GFR (CKD-EPI)NonAf 90 (>60 ml/min/1.73 sqM) Glucose 104 H (74-99) mg/dL Calcium 8.0 L (8.4-10.2) mg/dL Total Bilirubin 1.3 (0.2-1.3) mg/dL AST 23 (17-59) U/L ALT 24 (4-49) U/L Alkaline Phosphatase 61 (38-126) U/L Troponin I (0.000-0.034) ng/mL NT-Pro-B Natriuret Pep pg/mL Total Protein 6.6 (6.3-8.2) g/dL Albumin 3.6 (3.5-5.0) g/dL 07/31/21 07/31/21 07/31/21 Range/Units 12:03 12:03 12:28 WBC (3.8-10.6) k/uL RBC (4.30-5.90) m/uL Hgb (13.0-17.5) gm/dL Hct (39.0-53.0) % MCV (80.0-100.0) fL MCH (25.0-35.0) pg MCHC (31.0-37.0) g/dL RDW (11.5-15.5) % Plt Count (150-450) k/uL MPV Neutrophils % % Lymphocytes % % Monocytes % % Eosinophils % % Basophils % % Neutrophils # (1.3-7.7) k/uL Lymphocytes # (1.0-4.8) k/uL Monocytes # (0-1.0) k/uL Eosinophils # (0-0.7) k/uL Basophils # (0-0.2) k/uL PT (9.0-12.0) sec INR (<1.2) APTT (22.0-30.0) sec Sample Site RRAD ABG pH 7.24 L (7.35-7.45) ABG pCO2 85 H* (35-45) mmHg ABG pO2 131 H (83-108) mmHg ABG HCO3 36 H (21-25) mmol/L ABG Total CO2 39 H (19-24) mmol/L ABG O2 Saturation 97.9 H (94-97) % ABG Base Excess 8.9 mmol/L Ross Test Yes FiO2 50 % Sodium (137-145) mmol/L Potassium (3.5-5.1) mmol/L Chloride (98-107) mmol/L Carbon Dioxide (22-30) mmol/L Anion Gap mmol/L BUN (9-20) mg/dL Creatinine (0.66-1.25) mg/dL Est GFR (CKD-EPI)AfAm (>60 ml/min/1.73 sqM) Est GFR (CKD-EPI)NonAf (>60 ml/min/1.73 sqM) Glucose (74-99) mg/dL Calcium (8.4-10.2) mg/dL Total Bilirubin (0.2-1.3) mg/dL AST (17-59) U/L ALT (4-49) U/L Alkaline Phosphatase (38-126) U/L Troponin I <0.012 (0.000-0.034) ng/mL NT-Pro-B Natriuret Pep 1660 pg/mL Total Protein (6.3-8.2) g/dL Albumin (3.5-5.0) g/dL Critical Care Time Critical Care Time: Yes Total Critical Care Time: 35 Disposition Clinical Impression: Acute exacerbation of chronic obstructive pulmonary disease, Hypercarbia, Hy ponatremia Disposition: ADMITTED IP TO THIS [facility] Time of Disposition: 13:22
[2021-07-31 12:22] LABS: Partial Thromboplastin Time 31.8 sec (22.0-30.0); Prothrombin Time 10.9 sec (9.0-12.0)
[2021-07-31 12:28] LABS: ALT 24 U/L (4-49); AST 23 U/L (17-59); African American GFR (CKD) >90 (>60 ml/min/1.73 sqM); Albumin 3.6 g/dL (3.5-5.0); Alkaline Phosphatase 61 U/L (38-126); Anion Gap 3 mmol/L; Blood Urea Nitrogen 11 mg/dL (9-20); Carbon Dioxide 35 mmol/L (22-30); Chloride 90 mmol/L (98-107); Glucose 104 mg/dL (74-99); Non-African American GFR(CKD) 90 (>60 ml/min/1.73 sqM); Potassium 4.2 mmol/L (3.5-5.1); Sodium 128 mmol/L (137-145); Total Bilirubin 1.3 mg/dL (0.2-1.3); Total Protein 6.6 g/dL (6.3-8.2)
[2021-07-31 12:37] LABS: Basophils % (A) 1 %; Eosinophils % (A) 1 %; HCT 44.6 % (39.0-53.0); HGB 15.2 gm/dL (13.0-17.5); Lymphocytes # (A) 0.9 k/uL (1.0-4.8); Lymphocytes % (A) 14 %; MCH 32.9 pg (25.0-35.0); MCHC 34.1 g/dL (31.0-37.0); MCV 96.5 fL (80.0-100.0); Mean Platelet Volume 8.1; Monocytes # (A) 0.5 k/uL (0-1.0); Monocytes % (A) 8 %; Neutrophils # (A) 4.5 k/uL (1.3-7.7); Neutrophils % (A) 73 %; Platelet Count 170 k/uL (150-450); RBC 4.62 m/uL (4.30-5.90); RDW 15.7 % (11.5-15.5); WBC 6.2 k/uL (3.8-10.6)
[2021-07-31 12:39] LABS: ABG Base Excess 8.9 mmol/L; ABG HCO3 36 mmol/L (21-25); ABG Oxygen Saturation 97.9 % (94-97); ABG PH 7.24 (7.35-7.45); ABG PO2 131 mmHg (83-108); ABG TCO2 39 mmol/L (19-24); Allen Test Performed? Yes
[2021-07-31 12:42] LABS: ABG PCO2 85 mmHg (35-45)
[2021-07-31] MEDS ORDERED: IPRATROPIUM-ALBUTEROL 3 ML NEB INHALATION PRN (13:23)
[2021-07-31] MEDS ORDERED: LEVOFLOXACIN 750 MG TAB PO SCH (14:00)
[2021-07-31] MEDS ORDERED: HEPARIN SODIUM,PORCINE/PF 5,000 UNIT/0.5 ML SYRINGE SQ SCH (16:00)
[2021-07-31 16:27] LABS: Glucose,Whole Blood 110 mg/dL (75-99)
--- NOTE | 2021-07-31 17:50 | P.CNPUL ---
History of Present Illness Consult date: 07/31/21 Reason for consult: dyspnea History of present illness: 70-year-old male patient with known history of COPD and bladder cancer who was being evaluated and seen at the oncologist office for ongoing immunotherapy as the patient is receiving keytruda therapy. The patient has already received 2 doses. On today's evaluation, the patient was found to be lethargic, having altered mentation, hallucinations and lethargy. Based on that, he was asked to come into the hospital for further evaluation and he was sent to the emergency department. He is known to have chronic hypercapnia related to his COPD. He also has obstructive sleep apnea. He hasn't been able to use his CPAP as the patient did not have the appropriate mask. His periodontal assistant and sleep specialist are from [facility] in [place]. The patient has been maintained on Trelegy Ellipta as maintenance regarding his COPD. He has had previous episodes of hypercapnic respiratory failure requiring BiPAP therapy and previous hospitalization at [facility]. The patient is a DO NOT INTUBATE CODE STATUS. Currently, the patient is on a BiPAP at a pressure of 14/6 with an FiO2 of 40%. Is able to generate a tidal volume of 4 50 mL and his minute ventilation is around 9 L per minute. He seems to be quite comfortable on the BiPAP. His chest x-ray showed a Mediport in the right chest. The patient also has a right basal opacity could reflect atelectasis. There is also some background COPD. Osseous structures are intact. The patient has mild card iomegaly. No evidence of any pneumothorax or consolidations. At this point in time, has a white cell count of 6.2 with a hemoglobin of 15.2 and a platelet count of 170. Blood gases prior to BiPAP therapy showed a pH of 7.24 with a pCO2 of 85 and pO2 of 131. Sodium level is at 128 and the family tells me that the patient has had issues with hyponatremia earlier. He was started on salt tablets. Serum bicarb is 35 consistent with chronic hypercapnic respiratory failure and chronic metabolic alkalosis. LFTs are normal. ProBNP level is 1660 and a TSH level is at 0.967. Troponins are negative and the proBNP level is 1660 and the patient has been in atrial fibrillation with rapid ventricular response and the current heart rate is irregular at the rate of 120. He is arousable. Goes to sleep if left unstimulated. No reported chest pain. No angina. No palpitation. He has developed increased swelling in lower extremity is bilaterally. The patient COVID 19 infection back in 2021 and the patient was given monoclonal antibodies. He was also treated with steroids. 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 at this point in time, obesity, chronic hyponatremia, COVID is infection in June 2021, recovered History of Any Multi-Drug Resistant Organisms: None Reported Past Surgical History: Unable to Obtain Additional Past Surgical History / Comment(s): TUBT/transurethral resection of bladder tumor, nephrectomy for kidney donation, elbow surgery Smoking Status: Current every day smoker Medications and Allergies Home Medications Medication Instructions Recorded Confirmed Type Aspirin [Adult Low Dose Aspirin EC] 81 mg PO DAILY 11/15/19 07/31/21 History Losartan [Cozaar] 50 mg PO DAILY 11/15/19 07/31/21 History Albuterol Nebulized [Ventolin 2.5 mg INHALATION RT-Q4H PRN 07/21/20 07/31/21 History Nebulized] Cyanocobalamin (Vitamin B-12) 1,000 mcg PO DAILY 07/31/21 07/31/21 History [Vitamin B-12] Fluticasone/Umeclidin/Vilanter 1 puff INHALATION RT-DAILY 07/31/21 07/31/21 History [Trelegy Ellipta 100-62.5-25] Hydrocortisone [Cortef] 10 mg PO HS 07/31/21 07/31/21 History Hydrocortisone [Cortef] 20 mg PO DAILY 07/31/21 07/31/21 History Levothyroxine Sodium [Synthroid] 100 mcg PO MOTUWETHFRSA 07/31/21 07/31/21 History Levothyroxine Sodium [Synthroid] 200 mcg PO MIRZA 07/31/21 07/31/21 History Montelukast [Singulair] 10 mg PO HS 07/31/21 07/31/21 History Omeprazole 20 mg PO DAILY 07/31/21 07/31/21 History Sotalol [Betapace] 80 mg PO BID 07/31/21 07/31/21 History traZODone HCL 150 mg PO HS PRN 07/31/21 07/31/21 History Allergies Allergy/AdvReac Type Severity Reaction Status Date / Time bee venom protein (honey bee) Allergy Anaphylaxis Verified 07/31/21 14:12 cefaclor [From Ceclor] Allergy Rash/Hives Verified 07/31/21 14:12 ibuprofen Allergy only has 1 Verified 07/31/21 14:12 kidney morphine AdvReac Nausea & Verified 07/31/21 14:12 Vomiting Physical Exam Vitals: Vital Signs Temp Pulse Resp BP Pulse Ox 07/31/21 15:30 101 H 131/89 95 07/31/21 14:30 129 H 92 L 07/31/21 14:00 140 H 07/31/21 13:30 120 H 117/91 78 L 07/31/21 13:17 117/91 07/31/21 13:00 95 100 07/31/21 12:46 90 07/31/21 12:30 114 H 148/112 100 07/31/21 12:08 116 H 100 07/31/21 12:05 20 07/31/21 12:00 124 H 20 148/112 99 07/31/21 10:41 97.2 F L 94 18 157/90 90 L Intake and Output 07/31/21 07/31/21 07/31/21 06:59 14:59 22:59 Other: Weight 111.13 kg 111.13 kg Patient is lethargic, somnolent, tolerating BiPAP at a pressure of 14/6 with a fullface mask and FiO2 of 40%. Tolerating the BiPAP mask without any major difficulties. Arousable. Head exam was generally normal. There was no scleral icterus or corneal arcus. Mucous membranes were moist. Neck was supple and without jugular venous distension, thyromegaly, or carotid bruits. Carotids were easily palpable bilaterally. There was no adenopathy. Significant crowding of posterior pharyngeal metabolic S4 Lungs sounds are diminished and the patient is scheduled extremity cellulitis of the lung his bilaterally. Overall breath sounds are quite diminished Cardiac exam revealed the PMI to be normally situated and sized. The rhythm was regular and no extrasystoles were noted during several minutes of auscultation. The first and second heart sounds irregular and the patient is tachycardic consistent with atrial fibrillation. No rubs. No murmurs. Abdominal exam revealed normal bowel sounds. The abdomen was soft, non-tender, and without masses, organomegaly, or appreciable enlargement of the abdominal aorta. Extremities revealed +1 pitting edema and there is no cyanosis or clubbing. Neurologically the patient is lethargic, confounded, CO2 narcosis, neurologic exam is nonfocal and the patient is withdrawing to pain. Initial 4 extremity is without any limitation. Pupils are equal reactive to light. No facial asymmetry. Results - Laboratory Findings CBC and BMP: 07/31/21 12:03 07/31/21 12:03 ABG ABG pH 7.24 (7.35-7.45) L 07/31/21 12:28 ABG pCO2 85 mmHg (35-45) H* 07/31/21 12:28 ABG pO2 131 mmHg (83-108) H 07/31/21 12:28 ABG O2 Saturation 97.9 % (94-97) H 07/31/21 12:28 PT/INR, D-dimer PT 10.9 sec (9.0-12.0) 07/31/21 12:03 INR 1.0 (<1.2) 07/31/21 12:03 Abnormal lab findings: Abnormal Labs 07/31/21 07/31/21 07/31/21 12:03 12:03 12:03 RDW 15.7 H Lymphocytes # 0.9 L APTT 31.8 H ABG pH ABG pCO2 ABG pO2 ABG HCO3 ABG Total CO2 ABG O2 Saturation Sodium 128 L Chloride 90 L Carbon Dioxide 35 H Glucose 104 H POC Glucose (mg/dL) Calcium 8.0 L 07/31/21 07/31/21 12:28 16:25 RDW Lymphocytes # APTT ABG pH 7.24 L ABG pCO2 85 H* ABG pO2 131 H ABG HCO3 36 H ABG Total CO2 39 H ABG O2 Saturation 97.9 H Sodium Chloride Carbon Dioxide Glucose POC Glucose (mg/dL) 110 H Calcium - Diagnostic Findings Chest x-ray: image reviewed Assessment and Plan Plan: 1 acute on chronic hypoxic/hypercapnic respiratory failure due to COPD exacerbation, possibly with a component of CHF. Patient is currently on BiPAP for respiratory support. 2 chronic hypoxic respiratory failure. Oxygen 3 L per minute nasal cannula secondary to COPD 3 advanced COPD with chronic hypoxic respiratory failure and the patient has a component of chronic hypercapnic respiratory failure with secondary metabolic alkalosis. The patient has been maintained on Trelegy Ellipta on outpatient basis 4 chronic atrial fibrillation with rapid ventricular response at time of admission. Note that the patient has not been on any form of anticoagulant on outpatient basis and he was maintained on sotalol 5 CHF suspected with increased interstitial edema, elevation of the proBNP level and increased lower extremity edema. 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 Repeat blood On the BiPAP Put the patient on DuoNeb nebulized treatments around the clock 4 times a day IV Solu Medrol 60 mg every 6 hours Empiric antibiotic coverage with Levaquin Check blood cultures Check pro calcitonin level 2-D echocardiogram to assess LV function Hold IV heparin for now till we have a better understanding for the reasons that the patient was not placed on anticoagulation regarding his chronic atrial fibrillation. Monitor sodium level Monitor urine output and electrolytes and renal function Restart Synthroid in the IV form cutting the dose by half Hold immunotherapy for now DO NOT INTUBATE CODE STATUS Had a lengthy discussion with the daughter the bedside We'll continue to follow. Note that most of the patient's previous evaluation and treatment has been done through [facility] in [facility].
[2021-07-31] MEDS: DILTIAZEM 125 MG in SODIUM CHLORIDE 0.9% 100 ML IV SCH (18:18)
[2021-07-31] MEDS: ENOXAPARIN 40 MG/0.4 ML SYRINGE SQ SCH (18:42)
[2021-07-31] MEDS: methylPREDNISolone SOD SUCCI 125 MG/2 ML VIAL IV SCH ×2 (18:42→23:13)
[2021-07-31] MEDS: PANTOPRAZOLE 40 MG/10 ML VIAL IVP SCH (18:42)
[2021-07-31] MEDS ORDERED: CEFDINIR 300 MG CAP PO SCH (21:00)
[2021-07-31] MEDS: FUROSEMIDE 10 MG/ML 4 ML VIAL IV SCH (21:37)
--- NOTE | 2021-07-31 23:53 | P.HPIM ---
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 Patient has been lethargic and drowsy. Was very short of breath and had to place on BiPAP more often as per his son. Patient has been having symptoms for the past 1 week. No fever no chills. Cough without any sputum production. No nausea vomiting abdominal pain or diarrhea. Patient also has been having increasing swelling of both legs. Chest x-ray showed right basilar opacity could reflect acute infiltrate/atelectasis. EKG showed atrial fibrillation with rate controlled at 86. ABGs on admission showed pH of 7.24 PCO2 85 PO2 131 and bicarb is 36. Patient was placed on BiPAP in the ER. Other laboratory data showed WBC 6.2 hemoglobin 15.1 platelets 170 sodium 128 potassium 4.2 chloride 90 bicarb is 35 BUN 11 and creatinine 0.83 and blood sugar is 104 calcium 8.0 liver enzymes are elevated troponin x1 - proBNP is 1660 TSH 0.967. Review of Systems Complete review of systems could not be obtained from the patient except as per HPI. Past Medical History Past Medical History: Asthma, COPD Additional Past Medical History / Comment(s): bladder CA, pt states he donated one kidney History of Any Multi-Drug Resistant Organisms: None Reported Past Surgical History: Unable to Obtain Past Psychological History: No Psychological Hx Reported Smoking Status: Current every day smoker Past Alcohol Use History: None Reported Past Drug Use History: None Reported Medications and Allergies Home Medications Medication Instructions Recorded Confirmed Type Aspirin [Adult Low Dose Aspirin EC] 81 mg PO DAILY 11/15/19 07/31/21 History Losartan [Cozaar] 50 mg PO DAILY 11/15/19 07/31/21 History Albuterol Nebulized [Ventolin 2.5 mg INHALATION RT-Q4H PRN 07/21/20 07/31/21 History Nebulized] Cyanocobalamin (Vitamin B-12) 1,000 mcg PO DAILY 07/31/21 07/31/21 History [Vitamin B-12] Fluticasone/Umeclidin/Vilanter 1 puff INHALATION RT-DAILY 07/31/21 07/31/21 History [Trelegy Ellipta 100-62.5-25] Hydrocortisone [Cortef] 10 mg PO HS 07/31/21 07/31/21 History Hydrocortisone [Cortef] 20 mg PO DAILY 07/31/21 07/31/21 History Levothyroxine Sodium [Synthroid] 100 mcg PO MOTUWETHFRSA 07/31/21 07/31/21 Histo ry Levothyroxine Sodium [Synthroid] 200 mcg PO MIRZA 07/31/21 07/31/21 History Montelukast [Singulair] 10 mg PO HS 07/31/21 07/31/21 History Omeprazole 20 mg PO DAILY 07/31/21 07/31/21 History Sotalol [Betapace] 80 mg PO BID 07/31/21 07/31/21 History traZODone HCL 150 mg PO HS PRN 07/31/21 07/31/21 History Allergies Allergy/AdvReac Type Severity Reaction Status Date / Time bee venom protein (honey bee) Allergy Anaphylaxis Verified 07/31/21 14:12 cefaclor [From [facility]] Allergy Rash/Hives Verified 07/31/21 14:12 ibuprofen Allergy only has 1 Verified 07/31/21 14:12 kidney morphine AdvReac Nausea & Verified 07/31/21 14:12 Vomiting Physical Exam Vitals: Vital Signs Temp Pulse Resp BP Pulse Ox 07/31/21 13:17 117/91 07/31/21 13:00 95 100 07/31/21 12:46 90 07/31/21 12:30 114 H 148/112 100 07/31/21 12:08 116 H 100 07/31/21 12:05 20 07/31/21 12:00 124 H 20 148/112 99 07/31/21 10:41 97.2 F L 94 18 157/90 90 L Intake and Output 07/30/21 07/31/21 07/31/21 22:59 06:59 14:59 Other: Weight 111.13 kg PHYSICAL EXAMINATION: Patient is he is lethargic and drowsy. On BiPAP currently. Could not communicate. HEENT: Normocephalic. Neck is supple. Pupils reactive. Nostrils clear. Oral cavity is moist. Neck reveals no JVD, carotid bruits, or thyromegaly. CHEST EXAMINATION: Trachea is central. Symmetrical expansion. Diminished bilateral air entry.. CARDIAC: Normal S1, S2 with no gallops. No murmurs ABDOMEN: Soft. Obese bowel sounds present. No organomegaly. No abdominal bruits. Extremities: Bilateral 2+ edema. No clubbing or cyanosis Neurologically: Patient is lethargic and drowsy. No gross focal neurological deficit. Skin: No rash or skin lesions. Psychiatric: Could not be assessed at this time. Musculoskeletal: No joint swelling or deformity. Results CBC & Chem 7: 07/31/21 12:03 07/31/21 12:03 Labs: Abnormal Lab Results - Last 24 Hours (Table) 07/31/21 07/31/21 07/31/21 Range/Units 12:03 12:03 12:03 RDW 15.7 H (11.5-15.5) % Lymphocytes # 0.9 L (1.0-4.8) k/uL APTT 31.8 H (22.0-30.0) sec ABG pH (7.35-7.45) ABG pCO2 (35-45) mmHg ABG pO2 (83-108) mmHg ABG HCO3 (21-25) mmol/L ABG Total CO2 (19-24) mmol/L ABG O2 Saturation (94-97) % Sodium 128 L (137-145) mmol/L Chloride 90 L (98-107) mmol/L Carbon Dioxide 35 H (22-30) mmol/L Glucose 104 H (74-99) mg/dL Calcium 8.0 L (8.4-10.2) mg/dL 07/31/21 Range/Units 12:28 RDW (11.5-15.5) % Lymphocytes # (1.0-4.8) k/uL APTT (22.0-30.0) sec ABG pH 7.24 L (7.35-7.45) ABG pCO2 85 H* (35-45) mmHg ABG pO2 131 H (83-108) mmHg ABG HCO3 36 H (21-25) mmol/L ABG Total CO2 39 H (19-24) mmol/L ABG O2 Saturation 97.9 H (94-97) % Sodium (137-145) mmol/L Chloride (98-107) mmol/L Carbon Dioxide (22-30) mmol/L Glucose (74-99) mg/dL Calcium (8.4-10.2) mg/dL Thrombosis Risk Factor Assmnt - DVT/VTE Prophylaxis DVT/VTE Prophylaxis: Pharmacologic Prophylaxis ordered Assessment and Plan Assessment: Acute on chronic hypoxic and hypercapnic respiratory failure secondary to COPD exacerbation and possible CHF with increased leg swelling and elevated BNP. Currently requiring BiPAP. Recent COVID-19 infection in June 2021 Altered mental status/metabolic encephalopathy due to hypercapnia Hyponatremia Advanced COPD and chronic hypoxic respiratory failure requiring BiPAP intermittently. Chronic atrial fibrillation rate controlled with sotalol at home. Not on anticoagulation. Obstructive sleep apnea on CPAP at home History of Graves' disease treated with methimazole and is currently on thyroid supplementation. 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 History of bladder cancer status post TURBT and currently on immunotherapy. DVT prophylaxis with heparin subcu Plan: Patient is being continued on BiPAP. Continue with IV Solu-Medrol 60 mg every 6 hourly and duo nebs scheduled dose. Continue with antibiotics above Levaquin will be changed to IV. Patient was given a dose of IV Lasix. Follow-up TSH level. 2D echocardiogram was ordered. Continue with home medications and monitor closely. Prognosis poor at this time. CODE STATUS is DNR/DNI. Time with Patient: Greater than 30
[2021-08-01] MEDS: methylPREDNISolone SOD SUCCI 125 MG/2 ML VIAL IV SCH ×4 (05:20→23:18)
[2021-08-01 05:57] LABS: Basophils % (A) 0 %; Eosinophils % (A) 0 %; HCT 50.7 % (39.0-53.0); HGB 16.8 gm/dL (13.0-17.5); Lymphocytes # (A) 0.5 k/uL (1.0-4.8); Lymphocytes % (A) 10 %; MCH 32.3 pg (25.0-35.0); MCHC 33.1 g/dL (31.0-37.0); MCV 97.7 fL (80.0-100.0); Mean Platelet Volume 7.6; Monocytes # (A) 0.2 k/uL (0-1.0); Monocytes % (A) 3 %; Neutrophils # (A) 4.1 k/uL (1.3-7.7); Neutrophils % (A) 86 %; Platelet Count 163 k/uL (150-450); RBC 5.19 m/uL (4.30-5.90); WBC 4.8 k/uL (3.8-10.6)
[2021-08-01 06:10] LABS: African American GFR (CKD) >90 (>60 ml/min/1.73 sqM); Anion Gap 6 mmol/L; Blood Urea Nitrogen 15 mg/dL (9-20); Calcium 8.3 mg/dL (8.4-10.2); Carbon Dioxide 37 mmol/L (22-30); Chloride 86 mmol/L (98-107); Glucose 129 mg/dL (74-99); Non-African American GFR(CKD) 80 (>60 ml/min/1.73 sqM); Potassium 4.3 mmol/L (3.5-5.1); Sodium 129 mmol/L (137-145)
[2021-08-01] MEDS ORDERED: SOTALOL 80 MG TAB PO SCH (09:15)
[2021-08-01] MEDS: ENOXAPARIN 40 MG/0.4 ML SYRINGE SQ SCH (09:44)
[2021-08-01] MEDS: LEVOTHYROXINE IVP 100 MCG/5 ML VIAL IV SCH (09:45)
[2021-08-01] MEDS: PANTOPRAZOLE 40 MG/10 ML VIAL IVP SCH (09:45)
--- NOTE | 2021-08-01 10:00 | ECHOF ---
Referral Reason:chf MEASUREMENTS -------- HEIGHT: 160.0 cm WEIGHT: 106.1 kg BP: RVIDd: 4.3 cm (< 3.3) IVSd: 1.5 cm (0.6 - 1.1) LVIDd: 5.2 cm (3.9 - 5.3) LVPWd: 1.5 cm (0.6 - 1.1) IVSs: 2.0 cm LVIDs: 4.4 cm LVPWs: 1.7 cm LA Diam: 4.0 cm (2.7 - 3.8) Ao Diam: 4.0 cm (2.0 - 3.7) AV Cusp: 2.2 cm (1.5 - 2.6) LA Diam: 5.2 cm (2.7 - 3.8) MV EXCURSION: 14.317 mm (> 18.000) MV EF SLOPE: 88 mm/s (70 - 150) EPSS: 1.0 cm RAP: 10.00 mmHg RVSP: 48.28 mmHg FINDINGS -------- Undetermined rhythm. This was a technically adequate study. The left ventricular size is normal. There is moderate concentric left ventricular hypertrophy. O verall left ventricular systolic function is low-normal with, an EF between 50 - 55 %. The right ventricle is severely enlarged. The left atrial size is normal. The right atrial size is normal. There is mild aortic valve sclerosis. Trace to mild aortic regurgitation. Mild mitral annular calcification present. Mild mitral regurgitation is present. Mild tricuspid regurgitation present. There is mild to moderate pulmonary hypertension. The right ventricular systolic pressure, as measured by Doppler, is 48.28mmHg. Trace/mild (physiologic) pulmonic regurgitation. There is no pericardial effusion. CONCLUSIONS -------- 1. The left ventricular size is normal. 2. There is moderate concentric left ventricular hypertrophy. 3. Overall left ventricular systolic function is low-normal with, an EF between 50 - 55 %. 4. The right ventricle is severely enlarged. 5. The left atrial size is normal. 6. The right atrial size is normal. 7. There is mild aortic valve sclerosis. 8. Trace to mild aortic regurgitation. 9. Mild mitral annular calcification present. 10. Mild mitral regurgitation is present. 11. Mild tricuspid regurgitation present. 12. There is mild to moderate pulmonary hypertension. 13. The right ventricular systolic pressure, as measured by Doppler, is 48.28mmHg. 14. Trace/mild (physiologic) pulmonic regurgitation. 15. There is no pericardial effusion. LAB INSTRUCTOR: Clarisa Noel RDCS
[2021-08-01 10:28] LABS: ABG Base Excess 14.5 mmol/L; ABG Oxygen Saturation 87.4 % (94-97); ABG PH 7.34 (7.35-7.45); ABG TCO2 43 mmol/L (19-24)
[2021-08-01 10:32] LABS: ABG HCO3 40 mmol/L (21-25); ABG PCO2 75 mmHg (35-45); ABG PO2 55 mmHg (83-108); Allen Test Performed? YES
--- NOTE | 2021-08-01 12:03 | P.PN ---
Subjective Progress Note Date: 08/01/21 70-year-old male patient with known history of COPD and bladder cancer who was being evaluated and seen at the oncologist office for ongoing immunotherapy as the patient is receiving keytruda therapy. The patient has already received 2 doses. On today's evaluation, the patient was found to be lethargic, having altered mentation, hallucinations and lethargy. Based on that, he was asked to come into the hospital for further evaluation and he was sent to the emergency department. He is known to have chronic hypercapnia related to his COPD. He also has obstructive sleep apnea. He hasn't been able to use his CPAP as the patient did not have the appropriate mask. 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 The patient has been maintained on Trelegy Ellipta as maintenance regarding his COPD. He has had previous episodes of hypercapnic respiratory failure requiring BiPAP therapy and previous hospitalization at [facility]. The patient is a DO NOT INTUBATE CODE STATUS. Currently, the patient is on a BiPAP at a pressure of 14/6 with an FiO2 of 40%. Is able to generate a tidal volume of 4 50 mL and his minute ventilation is around 9 L per minute. He seems to be quite comfortable on the BiPAP. His chest x-ray showed a Mediport in the right chest. The patient also has a right basal opacity could reflect atelectasis. There is also some background COPD. Osseous structures are intact. The patient has mild cardiomegaly. No evidence of any pneumothorax or consolidations. At this point in time, has a white cell count of 6.2 with a hemoglobin of 15.2 and a platelet count of 170. Blood gases prior to BiPAP therapy showed a pH of 7.24 with a pCO2 of 85 and pO2 of 131. Sodium level is at 128 and the family tells me that the patient has had issues with hyponatremia earlier. He was started on salt tablets. Serum bicarb is 35 consistent with chronic hypercapnic respiratory failure and chronic metabolic alkalosis. LFTs are normal. ProBNP level is 1660 and a TSH level is at 0.967. Troponins are negative and the proBNP level is 1660 and the patient has been in atrial fibrillation with rapid ventricular response and the current heart rate is irregular at the rate of 120. He is arousable. Goes to sleep if left unstimulated. No reported chest pain. No angina. No palpitation. He has developed increased swelling in lower extremity is bilaterally. The patient COVID 19 infection back in general 2021 and the pa tient was given monoclonal antibodies. He was also treated with steroids. On today's evaluation of syncopal and , the patient is slightly more alert and awake compared to yesterday. He is following commands. 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 He was somewhat hostile with the physical therapy to the nursing staff. He was also angry with me. Most of his physicians are [facility]. He was quite comfortable on a BiPAP. I took him off the BiPAP and put him on [address] by nasal cannula. His subsequent blood gases showed some improvement and acid base status and the patient was at 7.34 with a pCO2 of 75 and a pO2 of 55. This was on 3 L approximately nasal cannula. He remains on IV Lasix. He was given empiric antibiotic coverage with Levaquin. His white count was at 4.8 with hemoglobin 16.8. Creatinine is stable and a creatinine of 0.97 with a mean of 15 his sodium level is at 129. echocardiogram was completed today and the patient was found to have a preserved LV function with an ejection fraction of 50-55%. There was moderate degree of pulmonary hypertension with a PA pressure of 48. There was also evidence of moderate concentric LVH. No significant valvular abnormalities. The patient remains on bronchodilators. The patient remains on systemic steroids. The patient remains in atrial fibrillation. The patient remains on a Cardizem drip for rate control. Cardizem drip is running at 5 mg an hour. He is on no anticoagulants. Objective - Vital Signs Vital signs: Vital Signs Temp 98.4 F 08/01/21 08:00 Pulse 88 08/01/21 11:00 Resp 12 08/01/21 11:00 BP 115/85 08/01/21 11:00 Pulse Ox 93 L 08/01/21 11:00 Intake & Output 07/31/21 08/01/21 08/01/21 18:59 06:59 18:59 Intake Total 15 180 60 Output Total 550 300 250 Balance -535 -120 -190 Weight 111.13 kg 106.3 kg Intake: IV 15 180 60 .9NS 10 120 40 Diltiazem 125 mg In 5 60 20 Sodium Chloride 0.9% 100 ml @ 5 MG/HR 5 mls/hr IV .Q24H [facility] Rx#:[id number] Output: Urine 550 300 250 Other: # Voids 0 - Exam Patient is lethargic, somnolent, tolerating BiPAP at a pressure of 14/6 with a fullface mask and FiO2 of 40%. Tolerating the BiPAP mask without any major difficulties. The patient was taken off the Levaquin and the patient was started on 3 L of oxygen by nasal cannula Head exam was generally normal. There was no scleral icterus or corneal arcus. Mucous membranes were moist. Neck was supple and without jugular venous distension, thyromegaly, or carotid bruits. Carotids were easily palpable bilaterally. There was no adenopathy. Significant crowding of posterior pharyngeal metabolic S4 Lungs sounds are diminished and the patient is scheduled extremity cellulitis of the lung his bilaterally. Overall breath sounds are quite diminished Cardiac exam revealed the PMI to be normally situated and sized. The rhythm was regular and no extrasystoles were noted during several minutes of auscultation. The first and second heart sounds irregular and the patient is tachycardic consistent with atrial fibrillation. No rubs. No murmurs. Abdominal exam revealed normal bowel sounds. The abdomen was soft, non-tender, and without masses, organomegaly, or appreciable enlargement of the abdominal aorta. Extremities revealed +1 pitting edema and there is no cyanosis or clubbing. Lower extremity edema is improving and the patient is being diuresed Neurologically the patient is awake and alert and following commands and answering questions - Labs CBC & Chem 7: 08/01/21 05:27 08/01/21 05:27 Labs: Abnormal Lab Results - Last 24 Hours (Table) 07/31/21 07/31/21 07/31/21 Range/Units 12:03 12:03 12:03 RDW 15.7 H (11.5-15.5) % Lymphocytes # 0.9 L (1.0-4.8) k/uL APTT 31.8 H (22.0-30.0) sec ABG pH (7.35-7.45) ABG pCO2 (35-45) mmHg ABG pO2 (83-108) mmHg ABG HCO3 (21-25) mmol/L ABG Total CO2 (19-24) mmol/L ABG O2 Saturation (94-97) % Sodium 128 L (137-145) mmol/L Chloride 90 L (98-107) mmol/L Carbon Dioxide 35 H (22-30) mmol/L Glucose 104 H (74-99) mg/dL POC Glucose (mg/dL) (75-99) mg/dL Calcium 8.0 L (8.4-10.2) mg/dL 07/31/21 07/31/21 08/01/21 Range/Units 12:28 16:25 05:27 RDW (11.5-15.5) % Lymphocytes # 0.5 L (1.0-4.8) k/uL APTT (22.0-30.0) sec ABG pH 7.24 L (7.35-7.45) ABG pCO2 85 H* (35-45) mmHg ABG pO2 131 H (83-108) mmHg ABG HCO3 36 H (21-25) mmol/L ABG Total CO2 39 H (19-24) mmol/L ABG O2 Saturation 97.9 H (94-97) % Sodium (137-145) mmol/L Chloride (98-107) mmol/L Carbon Dioxide (22-30) mmol/L Glucose (74-99) mg/dL POC Glucose (mg/dL) 110 H (75-99) mg/dL Calcium (8.4-10.2) mg/dL 08/01/21 08/01/21 Range/Units 05:27 10:26 RDW (11.5-15.5) % Lymphocytes # (1.0-4.8) k/uL APTT (22.0-30.0) sec ABG pH 7.34 L (7.35-7.45) ABG pCO2 75 H* (35-45) mmHg ABG pO2 55 L* (83-108) mmHg ABG HCO3 40 H* (21-25) mmol/L ABG Total CO2 43 H (19-24) mmol/L ABG O2 Saturation 87.4 L (94-97) % Sodium 129 L (137-145) mmol/L Chloride 86 L (98-107) mmol/L Carbon Dioxide 37 H (22-30) mmol/L Glucose 129 H (74-99) mg/dL POC Glucose (mg/dL) (75-99) mg/dL Calcium 8.3 L (8.4-10.2) mg/dL Assessment and Plan Plan: 1 acute on chronic hypoxic/hypercapnic respiratory failure due to COPD exacerbation, possibly with a component of CHF. Patient is currently on BiPAP for respiratory support. The patient was taken off the BiPAP and the subsequent blood cultures showed improvement and acid base status. He remains on bronchodilators and steroids. Follow-up blood gases were noted. No signs of any CO2 narcosis and his signs of CO2 narcosis improving and the patient is awake and alert and following commands. 2 chronic hypoxic respiratory failure. Oxygen 3 L per minute nasal cannula secondary to COPD 3 advanced COPD with chronic hypoxic respiratory failure and the patient has a component of chronic hypercapnic respiratory failure with secondary metabolic alkalosis. The patient has been maintained on Trelegy Ellipta on outpatient basis 4 chronic atrial fibrillation with rapid ventricular response at time of admission. Note that the patient has not been on any form of anticoagulant on outpatient basis and he was maintained on sotalol 5 CHF suspected with increased interstitial edema, elevation of the proBNP level and increased lower extremity edema. 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 8 history of Graves' disease, currently on thyroid hormone replacement 9 history of advanced deficiency maintained on Cortef 10 increased lower extremity edema, currently under investigation 11 bladder cancer the patient has undergone transurethral resection of the bladder tumor and the patient is currently on immunotherapy utilizing Keytruda 12 history of smoking 13 chronic hyponatremia Plan Keep the patient intensive care unit Discontinue Levaquin Continue bronchodilators and steroids Making the BiPAP on hold for now Keep oxygen at 3 L per minute nasal cannula Continue IV Solu Medrol 60 mg every 6 hours Echocardiogram showed a preserved LV function with moderately of pulmonary hypertension Restart sotalol 80 mg twice a day after discontinuing the Levaquin Keep Cardizem for rate control Consult cardiology regarding the atrial fibrillation No anticoagulants for now The Lasix to 40 Mg Once a Day Synthroid in the IV form cutting the dose by half Hold immunotherapy for now DO NOT INTUBATE CODE STATUS Had a lengthy discussion with the daughter the bedside We'll continue to follow. Note that most of the patient's previous evaluation and treatment has been done through [facility] in [facility].
--- NOTE | 2021-08-01 14:34 | P.CONS ---
History of Present Illness - Reason for Consult Consult date: 08/01/21 Urothelial Cancer Requesting physician: Santosh Sebastian - Chief Complaint Acute on Chronic Respiratory Failure - History of Present Illness Bladder Cancer Follow Up Visit HPI : This is a very nice patient who presented with gross hematuria of about 2-3 months duration. On 06/25/2019,CT scan of abdomen/pelvis revealed 5 mm RLL lung nodule,otherwise unremarkbale. On 10/15/2019,he had cystoscopy and resection of bladder tumor,pathology revealed high grade invasive urothelial carcinoma,invading muscularis propria. On 10/22/2019,PET scan (in part done for the lung nodule) was negative for metastatic disease. He declined neoadjuvant cisplatin based neoadjuvant therapy followed by radical cystectomy. He started definitive chemoradiation (with cisplatin/taxol) on 11/24/2019 He had a cystoscopy on 02/21/2020 which no evidence of disease. He had a cystoscopy by Dr Gonzalez in May/2020,there was concern about local recurrence and Dr Gonzalez recommended TURBT but he declined at that time. On 06/30/2020,repeat PET scan revealed no evidence of disease. However,in 07/2020,he presented with gross hematuria,he did undergo cystoscopy and TURBT,pathology was positive for recurrent muscle invasive urothelial carcinoma. Caris testing did not reveal any actionable mutation,GLENYS disease,low TMB,no FGFR alteration. He declined salvage surgery,he decided to proceed with immunotherapy. On 08/08/2020,he started keytruda. On 10/25/2020,he had repeat cystoscopy and biopsy,no evidence of malignancy. 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 He was readmitted twice to [place] since he last admission in October/2020 for hypercapnea and respiratory failure Repeat PET scan on 03/23/2021 revealed no evidence of disease. On 05/17/2021,repeat cystoscopy and TUR revealed recurrent high grade urothelial carcinoma. he was diagnosed with COVID last visit when I saw him,he recovered from it. he has his chronic dyspnea and fatigue,SOB,no recurrent hematuria. He has unfortunetly recently lost his son (disabled and Patient has been primary caregiver) to Tami this past month. He has been struggling with recurrent exacerbations of his COPD. Worse since tami. He presented to office for immune therapy treatment yesterday and was directed to emergency room for further evaluation. He was seen in consult this am, in ICU, he is sitting up in bed, eating breakfast. He does not have oxygen on at this time and does not seem short of breath or in any distress. 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 History of Any Multi-Drug Resistant Organisms: None Reported Past Surgical History: Unable to Obtain Additional Past Surgical History / Comment(s): TUBT/transurethral resection of bladder tumor, nephrectomy for kidney donation, elbow surgery Past Anesthesia/Blood Transfusion Reactions: Previous Problems w/ Anesthesia Additional Past Anesthesia/Blood Transfusion Reaction / Comm: hard time waking up Past Psychological History: No Psychological Hx Reported Smoking Status: Current every day smoker Past Alcohol Use History: None Reported Past Drug Use History: None Reported Medications and Allergies Home Medications Medication Instructions Recorded Confirmed Type Aspirin [Adult Low Dose Aspirin EC] 81 mg PO DAILY 11/15/19 07/31/21 History Losartan [Cozaar] 50 mg PO DAILY 11/15/19 07/31/21 History Albuterol Nebulized [Ventolin 2.5 mg INHALATION RT-Q4H PRN 07/21/20 07/31/21 History Nebulized] Cyanocobalamin (Vitamin B-12) 1,000 mcg PO DAILY 07/31/21 07/31/21 History [Vitamin B-12] Fluticasone/Umeclidin/Vilanter 1 puff INHALATION RT-DAILY 07/31/21 07/31/21 History [Trelegy Ellipta 100-62.5-25] Hydrocortisone [Cortef] 10 mg PO HS 07/31/21 07/31/21 History Hydrocortisone [Cortef] 20 mg PO DAILY 07/31/21 07/31/21 History Levothyroxine Sodium [Synthroid] 100 mcg PO MOTUWETHFRSA 07/31/21 07/31/21 History Levothyroxine Sodium [Synthroid] 200 mcg PO MIRZA 07/31/21 07/31/21 History Montelukast [Singulair] 10 mg PO HS 07/31/21 07/31/21 History Omeprazole 20 mg PO DAILY 07/31/21 07/31/21 History Sotalol [Betapace] 80 mg PO BID 07/31/21 07/31/21 History traZODone HCL 150 mg PO HS PRN 07/31/21 07/31/21 History Allergies Allergy/AdvReac Type Severity Reaction Status Date / Time bee venom protein (honey bee) Allergy Anaphylaxis Verified 07/31/21 14:12 cefaclor [From [facility]] Allergy Rash/Hives Verified 07/31/21 14:12 ibuprofen Allergy only has 1 Verified 07/31/21 14:12 kidney morphine AdvReac Nausea & Verified 07/31/21 14:12 Vomiting Physical Exam Vitals: Vital Signs Temp Pulse Resp BP Pulse Ox 08/01/21 11:00 88 12 115/85 93 L 08/01/21 10:30 98 18 111/79 08/01/21 10:00 105 H 10 L 119/83 94 L 08/01/21 09:30 115 H 22 93 L 08/01/21 09:00 112 H 12 117/91 93 L 08/01/21 08:30 108 H 15 94 L 08/01/21 08:00 98.4 F 95 25 H 125/94 99 08/01/21 07:30 123 H 33 H 99 08/01/21 07:00 103 H 23 130/96 97 08/01/21 06:30 93 20 130/96 94 L 08/01/21 06:00 112 H 12 130/96 96 08/01/21 05:30 98 20 134/103 98 08/01/21 05:00 91 19 120/84 08/01/21 04:30 104 H 18 120/84 95 08/01/21 04:00 97.4 F L 94 31 H 123/98 90 L 08/01/21 03:30 98 22 123/98 91 L 08/01/21 03:00 94 30 H 122/91 94 L 08/01/21 02:30 101 H 16 122/91 08/01/21 02:00 102 H 12 101/80 08/01/21 01:30 86 13 101/80 08/01/21 01:00 92 33 H 110/85 93 L 08/01/21 00:30 121 H 16 110/85 91 L 08/01/21 00:00 97.6 F 87 17 108/87 07/31/21 23:30 92 15 108/87 07/31/21 23:07 96 17 108/87 91 L 07/31/21 23:00 102 H 16 118/100 100 07/31/21 22:30 88 25 H 118/100 07/31/21 22:00 98 19 84/71 07/31/21 21:30 97 24 84/71 07/31/21 21:00 90 16 111/91 07/31/21 20:30 98 19 111/91 98 07/31/21 20:00 97.5 F L 98 18 07/31/21 19:30 125 H 14 86/68 07/31/21 19:00 96 13 111/83 96 07/31/21 18:30 144 H 20 111/83 96 07/31/21 18:00 94 19 92/62 95 07/31/21 17:32 111 H 19 119/88 92 L 07/31/21 16:30 115 H 16 167/132 94 L 07/31/21 16:00 97.6 F 100 14 131/89 96 07/31/21 15:30 101 H 131/89 95 07/31/21 14:30 129 H 92 L 07/31/21 14:00 140 H 07/31/21 13:30 120 H 117/91 78 L 07/31/21 13:17 117/91 Intake and Output 07/31/21 08/01/21 08/01/21 22:59 06:59 14:59 Intake Total 75 120 60 Output Total 550 300 250 Balance -475 -180 -190 Intake: IV 75 120 60 .9NS 50 80 40 Diltiazem 125 mg In 25 40 20 Sodium Chloride 0.9% 100 ml @ 5 MG/HR 5 mls/hr IV .Q24H [facility] Rx#:[id number] Output: Urine 550 300 250 Other: # Voids 0 0 Weight 111.13 kg 106.3 kg - Constitutional General appearance: cooperative, mild distress, obese - EENT Eyes: EOMI ENT: NA/AT - Neck Bilateral thickness in neck - Respiratory Respiratory: bilateral: diminished, wheezing - Cardiovascular Rhythm: regularly irregular foot Peripheral Edema: bilateral: 2+ - Gastrointestinal General gastrointestinal: normal bowel sounds, soft - Integumentary Integumentary: pale - Neurologic Neurologic: CNII-XII intact - Musculoskeletal Musculoskeletal: generalized weakness, strength equal bilaterally - Psychiatric Psychiatric: A&O x's 3, appropriate affect, intact judgment & insight Results CBC & Chem 7: 08/01/21 05:27 08/01/21 05:27 Labs: Abnormal Lab Results - Last 24 Hours (Table) 07/31/21 08/01/21 08/01/21 Range/Units 16:25 05:27 05:27 Lymphocytes # 0.5 L (1.0-4.8) k/uL ABG pH (7.35-7.45) ABG pCO2 (35-45) mmHg ABG pO2 (83-108) mmHg ABG HCO3 (21-25) mmol/L ABG Total CO2 (19-24) mmol/L ABG O2 Saturation (94-97) % Sodium 129 L (137-145) mmol/L Chloride 86 L (98-107) mmol/L Carbon Dioxide 37 H (22-30) mmol/L Glucose 129 H (74-99) mg/dL POC Glucose (mg/dL) 110 H (75-99) mg/dL Calcium 8.3 L (8.4-10.2) mg/dL 08/01/21 Range/Units 10:26 Lymphocytes # (1.0-4.8) k/uL ABG pH 7.34 L (7.35-7.45) ABG pCO2 75 H* (35-45) mmHg ABG pO2 55 L* (83-108) mmHg ABG HCO3 40 H* (21-25) mmol/L ABG Total CO2 43 H (19-24) mmol/L ABG O2 Saturation 87.4 L (94-97) % Sodium (137-145) mmol/L Chloride (98-107) mmol/L Carbon Dioxide (22-30) mmol/L Glucose (74-99) mg/dL POC Glucose (mg/dL) (75-99) mg/dL Calcium (8.4-10.2) mg/dL Chest x-ray: report reviewed Assessment and Plan (1) Acute exacerbation of chronic obstructive pulmonary disease Current Visit: Yes Status: Acute Code(s): J44.1 - CHRONIC OBSTRUCTIVE PULMONARY DISEASE W (ACUTE) EXACERBATION SNOMED Code(s): 725264008 (2) Malignant neoplasm of bladder, unspecified Current Visit: No Status: Acute Code(s): C67.9 - MALIGNANT NEOPLASM OF BLADDER, UNSPECIFIED SNOMED Code(s): 614593961 Plan: Hold Keytruda until after cleared by pulmonology Conitnue treatment of respiratory failure and CHF per ICU Continue supportive care, patient is looking better today Doctor attests: I performed a history and physical examination of this patient, developed impression and plan of care, discussed with dictator. I agree with dictators note, documented as a scribe.
[2021-08-01] MEDS: DILTIAZEM CD 180 MG CAP.ER.24H PO SCH (14:39)
[2021-08-01 14:43] LABS: Amorphous Sediment,Urine Rare /hpf; Appearance,Urine Cloudy (Clear); Bilirubin,Urine Negative (Negative); Blood,Urine Small (Negative); Color,Urine Yellow; Glucose,Urine (UA) 1+ (Negative); Hyaline Casts,Urine 26 /lpf (0-2); Ketones,Urine Negative (Negative); Leukocyte Esterase,Urine Large (Negative); Mucus,Urine Rare /hpf; Nitrite,Urine Negative (Negative); PH, Urine 5.5 (5.0-8.0); Protein,Urine Trace (Negative); RBC,Urine 12 /hpf (0-5); Specific Gravity,Urine 1.018 (1.001-1.035); Squamous Epithelial Cell,Urine <1 /hpf (0-4); Urobilinogen,Urine <2.0 mg/dL (<2.0); WBC,Urine 105 /hpf (0-5)
[2021-08-01] MEDS: DILTIAZEM 125 MG in SODIUM CHLORIDE 0.9% 100 ML IV SCH (17:59)
[2021-08-01] MEDS ORDERED: SODIUM CHLORIDE 0.65% NASAL SPRAY 44 ML BTL NASAL PRN (20:45)
[2021-08-02 06:16] LABS: Basophils % (A) 0 %; Eosinophils % (A) 0 %; HCT 46.4 % (39.0-53.0); HGB 15.2 gm/dL (13.0-17.5); Lymphocytes # (A) 0.5 k/uL (1.0-4.8); Lymphocytes % (A) 4 %; MCH 32.4 pg (25.0-35.0); MCHC 32.7 g/dL (31.0-37.0); Macrocytosis Slight; Mean Platelet Volume 7.8; Monocytes # (A) 0.4 k/uL (0-1.0); Monocytes % (A) 3 %; Neutrophils # (A) 11.5 k/uL (1.3-7.7); Neutrophils % (A) 91 %; Platelet Count 167 k/uL (150-450); RBC 4.68 m/uL (4.30-5.90); RDW 15.9 % (11.5-15.5); WBC 12.5 k/uL (3.8-10.6)
[2021-08-02] MEDS: methylPREDNISolone SOD SUCCI 125 MG/2 ML VIAL IV SCH ×4 (06:34→23:56)
[2021-08-02 06:35] LABS: Calcium 8.5 mg/dL (8.4-10.2)
[2021-08-02 06:44] LABS: Potassium 4.5 mmol/L (3.5-5.1)
[2021-08-02] MEDS: PANTOPRAZOLE 40 MG/10 ML VIAL IVP SCH (08:13)
[2021-08-02] MEDS: ENOXAPARIN 40 MG/0.4 ML SYRINGE SQ SCH (08:13)
[2021-08-02] MEDS: LEVOTHYROXINE IVP 100 MCG/5 ML VIAL IV SCH (08:13)
[2021-08-02] MEDS: DILTIAZEM CD 180 MG CAP.ER.24H PO SCH (08:14)
[2021-08-02] MEDS ORDERED: FUROSEMIDE 10 MG/ML 4 ML VIAL ONE (08:16)
--- NOTE | 2021-08-02 08:57 | XR ---
EXAMINATION TYPE: XR chest 1V portable DATE OF EXAM: 08/02/2021 COMPARISON: X-ray dated 07/31/2021 HISTORY: CHF TECHNIQUE: Single frontal view of the chest is obtained. FINDINGS: Grossly unremarkable lungs. No signs of pulmonary edema. No pleural effusion or pneumothorax. Slightl y increased cardiac transverse diameter. Suspected chronic fracture versus severe degenerative change s of the right acromioclavicular joint. Right-sided Port-A-Cath with the tip is seen within the SVC. IMPRESSION: No signs of pulmonary edema. Incidental findings as described above.
[2021-08-02] MEDS ORDERED: SODIUM CHLORIDE 0.9% 500 ML 500 ML IV ONE (08:58)
[2021-08-02] MEDS ORDERED: FUROSEMIDE 10 MG/ML 4 ML VIAL IV SCH (09:00)
[2021-08-02] MEDS ORDERED: SOTALOL 80 MG TAB PO SCH (09:15)
[2021-08-02] MEDS: ASPIRIN 81 MG PO SCH (09:40)
[2021-08-02] MEDS: CYANOCOBALAMIN 500 MCG TAB PO SCH (09:40)
--- NOTE | 2021-08-02 10:44 | P.CRDCN ---
History of Present Illness History of present illness: This is Dr. Hemphill dictating a consult on this patient The patient was interviewed and examined IMPRESSION / ASSESSMENT: Atrial fibrillation with RVR Morbid obesity Left ventricular hypertrophy ejection fraction 50-55% Enlarged right ventricle Patient presented with COPD exacerbation with hypercarbia, altered mental status fatigue and was placed on BiPAP PLAN: Discontinue sotalol. Sotalol has failed to control atrial fibrillation and maintains sinus rhythm. In addition given his pulmonary status and COPD exacerbation sotalol is preferably avoided I would recommend anticoagulation and oral Cardizem. He is currently on Cardizem long-acting 180 mg by mouth daily and his heart rates are in the 80s I will sign off at this time. My discharge recommendations:I would recommend oral anticoagulation for stroke prevention and oral Cardizem long-acting, and the dose will be increased to 240 mg by mouth daily if needed I would not recommend sotalol HPI Currently consulted for management of atrial fibrillation RVR Patient presented with shortness of breath COPD exacerbation fatigue and mental status change ROS: No fever chills or rigors, no cough, phlegm or expectoration, no nausea, vomiting or diarrhea, no hematuria, dysuria, no musculoskeletal complaints, no strokes or seizures, no skin lesions. EXAMINATION: Pulse rate currently in the 80s and 90s on Cardizem by mouth, respirations nonlabored but patient still tachypneic Blood pressure 110/79 mmHg Reduced breath sounds bilaterally, bronchospasm sounds Heart sounds distant REVIEW OF LABS, ECG & MEDICAL DATA Twelve-lead EKG shows A. 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 History of Any Multi-Drug Resistant Organisms: None Reported Past Surgical History: Unable to Obtain Additional Past Surgical History / Comment(s): TUBT/transurethral resection of bladder tumor, nephrectomy for kidney donation, elbow surgery Past Anesthesia/Blood Transfusion Reactions: Previous Problems w/ Anesthesia Additional Past Anesthesia/Blood Transfusion Reaction / Comment(s): hard time waking up Past Psychological History: No Psychological Hx Reported Smoking Status: Current every day smoker Past Alcohol Use History: None Reported Past Drug Use History: None Reported Medications and Allergies Home Medications Medication Instructions Recorded Confirmed Type Aspirin [Adult Low Dose Aspirin EC] 81 mg PO DAILY 11/15/19 07/31/21 History Losartan [Cozaar] 50 mg PO DAILY 11/15/19 07/31/21 History Albuterol Nebulized [Ventolin 2.5 mg INHALATION RT-Q4H PRN 07/21/20 07/31/21 History Nebulized] Cyanocobalamin (Vitamin B-12) 1,000 mcg PO DAILY 07/31/21 07/31/21 History [Vitamin B-12] Fluticasone/Umeclidin/Vilanter 1 puff INHALATION RT-DAILY 07/31/21 07/31/21 History [Trelegy Ellipta 100-62.5-25] Hydrocortisone [Cortef] 10 mg PO HS 07/31/21 07/31/21 History Hydrocortisone [Cortef] 20 mg PO DAILY 07/31/21 07/31/21 History Levothyroxine Sodium [Synthroid] 100 mcg PO MOTUWETHFRSA 07/31/21 07/31/21 History Levothyroxine Sodium [Synthroid] 200 mcg PO MIRZA 07/31/21 07/31/21 History Montelukast [Singulair] 10 mg PO HS 07/31/21 07/31/21 History Omeprazole 20 mg PO DAILY 07/31/21 07/31/21 History Sotalol [Betapace] 80 mg PO BID 07/31/21 07/31/21 History traZODone HCL 150 mg PO HS PRN 07/31/21 07/31/21 History Allergies Allergy/AdvReac Type Severity Reaction Status Date / Time bee venom protein (honey bee) Allergy Anaphylaxis Verified 07/31/21 14:12 cefaclor [From [facility]] Allergy Rash/Hives Verified 07/31/21 14:12 ibuprofen Allergy only has 1 Verified 07/31/21 14:12 kidney morphine AdvReac Nausea & Verified 07/31/21 14:12 Vomiting Physical Exam Vitals: Vital Signs Temp Pulse Resp BP Pulse Ox 08/02/21 10:00 91 17 110/79 90 L 08/02/21 08:00 84 69 H 111/82 92 L 08/02/21 07:55 93 08/02/21 07:45 92 08/02/21 07:20 93 L 08/02/21 07:00 94 24 136/90 91 L 08/02/21 06:00 89 12 114/80 92 L 08/02/21 05:00 84 19 99/70 95 08/02/21 04:00 97.7 F 83 13 99/70 92 L 08/02/21 03:00 77 14 92/56 94 L 08/02/21 02:00 89 17 96/79 92 L 08/02/21 01:00 77 17 109/65 94 L 08/02/21 00:35 66 28 H 94 L 08/02/21 00:00 98.2 F 70 26 H 108/72 92 L 08/01/21 23:00 81 28 H 93/68 90 L 08/01/21 22:00 78 25 H 92/55 90 L 08/01/21 21:00 75 12 80/55 92 L 08/01/21 20:00 98.3 F 77 17 82/59 08/01/21 19:00 84 22 99/65 94 L 08/01/21 18:00 81 11 L 101/65 94 L 08/01/21 17:00 81 18 84/63 94 L 08/01/21 16:00 98.1 F 75 16 107/81 95 08/01/21 15:00 87 34 H 96/72 97 08/01/21 14:00 73 16 103/73 93 L 08/01/21 13:00 92 44 H 104/76 92 L 08/01/21 12:00 98.2 F 98 14 108/91 94 L 08/01/21 11:00 88 12 115/85 93 L Intake and Output 08/01/21 08/02/21 08/02/21 22:59 06:59 14:59 Intake Total 438.417 120 540.083 Output Total 450 300 Balance -11.583 120 240.083 Intake: IV 120 120 15 .9NS 80 80 10 Diltiazem 125 mg In 40 40 5 Sodium Chloride 0.9% 100 ml @ 5 MG/HR 5 mls/hr IV .Q24H [facility] Rx#:[id number] Intake, IV Titration 118.417 75.083 Amount Diltiazem 125 mg In 118.417 75.083 Sodium Chloride 0.9% 100 ml @ 5 MG/HR 5 mls/hr IV .Q24H [facility] Rx#:[id number] Oral 200 450 Output: Urine 450 300 Other: # Bowel Movements 1 Weight 108.1 kg Results 08/02/21 05:29 08/02/21 05:29 CBC 08/02/21 Range/Units 05:29 WBC 12.5 H (3.8-10.6) k/uL RBC 4.68 (4.30-5.90) m/uL Hgb 15.2 (13.0-17.5) gm/dL Hct 46.4 (39.0-53.0) % Plt Count 167 (150-450) k/uL Comprehensive Metabolic Panel 08/02/21 Range/Units 05:29 Sodium 131 L (137-145) mmol/L Potassium 4.5 (3.5-5.1) mmol/L Chloride 91 L (98-107) mmol/L Carbon Dioxide 33 H (22-30) mmol/L BUN 37 H (9-20) mg/dL Creatinine 1.42 H (0.66-1.25) mg/dL Glucose 133 H (74-99) mg/dL Calcium 8.5 (8.4-10.2) mg/dL Current Medications Generic Name Dose Route Start Last Admin Trade Name Freq PRN Reason Stop Dose Admin Albuterol/Ipratropium 3 ml 07/31/21 13:23 08/02/21 07:45 Ipratropium-Albuterol 3 Ml Neb INHALATION 3 ml RT-Q4H PRN Administration Shortness Of Breath Or Wheezing Albuterol/Ipratropium 3 ml 08/02/21 12:00 Ipratropium-Albuterol 3 Ml Neb INHALATION RT-QID [facility] Aspirin 81 mg 08/02/21 09:15 08/02/21 09:40 Aspirin 81 Mg PO 81 mg DAILY [facility] Administration Budesonide/Formoterol Fumarate 2 puff 08/03/21 08:00 Symbicort 80-4.5 Mcg Inhaler INHALATION RT-BID [facility] Cyanocobalamin 1,000 mcg 08/02/21 09:15 08/02/21 09:40 Cyanocobalamin 500 Mcg Tab PO 1,000 mcg DAILY [facility] Administration Diltiazem HCl 180 mg 08/01/21 12:15 08/02/21 08:14 Diltiazem Cd 180 Mg Cap.Er.24h PO 180 mg DAILY [facility] Administration Enoxaparin Sodium 40 mg 07/31/21 18:15 08/02/21 08:13 Enoxaparin 40 Mg/0.4 Ml Syringe SQ 40 mg DAILY [facility] Administration Levothyroxine Sodium 100 mcg 08/03/21 06:30 Levothyroxine 100 Mcg Tab PO [id number] [facility] Levothyroxine Sodium 200 mcg 08/05/21 06:30 Levothyroxine 100 Mcg Tab PO [email or web address] [facility] Methylprednisolone Sodium Succinate 60 mg 07/31/21 18:00 08/02/21 06:34 Methylprednisolone Sod Succi 125 Mg/2 Ml Vial IV 60 mg Q6HR [facility] Administration Montelukast Sodium 10 mg 08/02/21 21:00 Montelukast 10 Mg Tab PO HS [facility] Pantoprazole Sodium 40 mg 07/31/21 18:15 08/02/21 08:13 Pantoprazole 40 Mg/10 Ml Vial IVP 40 mg DAILY [facility] Administration Sodium Chloride 2 spray 08/01/21 20:45 Sodium Chloride 0.65% Nasal [place] 44 Ml Btl NASAL QID PRN Nasal Congestion Intake and Output 08/01/21 08/02/21 08/02/21 22:59 06:59 14:59 Intake Total 438.417 120 540.083 Output Total 450 300 Balance -11.583 120 240.083 Intake: IV 120 120 15 .9NS 80 80 10 Diltiazem 125 mg In 40 40 5 Sodium Chloride 0.9% 100 ml @ 5 MG/HR 5 mls/hr IV .Q24H [facility] Rx#:[id number] Intake, IV Titration 118.417 75.083 Amount Diltiazem 125 mg In 118.417 75.083 Sodium Chloride 0.9% 100 ml @ 5 MG/HR 5 mls/hr IV .Q24H [facility] Rx#:[id number] Oral 200 450 Output: Urine 450 300 Other: # Bowel Movements 1 Weight 108.1 kg 08/02/21 05:29 08/02/21 05:29
[2021-08-02] MEDS: IPRATROPIUM-ALBUTEROL 3 ML NEB INHALATION SCH ×3 (10:45→19:10)
[2021-08-02 11:51] LABS: Glucose,Whole Blood 139 mg/dL (75-99)
--- NOTE | 2021-08-02 12:40 | P.PN ---
Subjective Progress Note Date: 08/02/21 70-year-old male patient with known history of COPD and bladder cancer who was being evaluated and seen at the oncologist office for ongoing immunotherapy as the patient is receiving keytruda therapy. The patient has already received 2 doses. On today's evaluation, the patient was found to be lethargic, having altered mentation, hallucinations and lethargy. Based on that, he was asked to come into the hospital for further evaluation and he was sent to the emergency department. He is known to have chronic hypercapnia related to his COPD. He also has obstructive sleep apnea. He hasn't been able to use his CPAP as the patient did not have the appropriate mask. His assistant auditor and sleep spec ialist are from [facility] in [place]. The patient has been maintained on Trelegy Ellipta as maintenance regarding his COPD. He has had previous episodes of hypercapnic respiratory failure requiring BiPAP therapy and previous hospitalization at [facility]. The patient is a DO NOT INTUBATE CODE STATUS. Currently, the patient is on a BiPAP at a pressure of 14/6 with an FiO2 of 40%. Is able to generate a tidal volume of 4 50 mL and his minute ventilation is around 9 L per minute. He seems to be quite comfortable on the BiPAP. His chest x-ray showed a Mediport in the right chest. The patient also has a right basal opacity could reflect atelectasis. There is also some background COPD. Osseous structures are intact. The patient has mild cardiomegaly. No evidence of any pneumothorax or consolidations. At this point in time, has a white cell count of 6.2 with a hemoglobin of 15.2 and a platelet count of 170. Blood gases prior to BiPAP therapy showed a pH of 7.24 with a pCO2 of 85 and pO2 of 131. Sodium level is at 128 and the family tells me that the patient has had issues with hyponatremia earlier. He was started on salt tablets. Serum bicarb is 35 consistent with chronic hypercapnic respiratory failure and chronic metabolic alkalosis. LFTs are normal. ProBNP level is 1660 and a TSH level is at 0.967. Troponins are negative and the proBNP level is 1660 and the patient has been in atrial fibrillation with rapid ventricular response and the current heart rate is irregular at the rate of 120. He is arousable. Goes to sleep if left unstimulated. No reported chest pain. No angina. No palpitation. He has developed increased swelling in lower extremity is bilaterally. The patient COVID 19 infection back in general 2021 and the pa tient was given monoclonal antibodies. He was also treated with steroids. On today's evaluation of syncopal thousand and 22, the patient is slightly more alert and awake compared to yesterday. He is following commands. 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 He was somewhat hostile with the physical therapy to the nursing staff. He was also angry with me. Most of his physicians are [facility]. He was quite comfortable on a BiPAP. I took him off the BiPAP and put him on [address] by nasal cannula. His subsequent blood gases showed some improvement and acid base status and the patient was at 7.34 with a pCO2 of 75 and a pO2 of 55. This was on 3 L approximately nasal cannula. He remains on IV Lasix. He was given empiric antibiotic coverage with Levaquin. His white count was at 4.8 with hemoglobin 16.8. Creatinine is stable and a creatinine of 0.97 with a mean of 15 his sodium level is at 129. echocardiogram was completed today and the patient was found to have a preserved LV function with an ejection fraction of 50-55%. There was moderate degree of pulmonary hypertension with a PA pressure of 48. There was also evidence of moderate concentric LVH. No significant valvular abnormalities. The patient remains on bronchodilators. The patient remains on systemic steroids. The patient remains in atrial fibrillation. The patient remains on a Cardizem drip for rate control. Cardizem drip is running at 5 mg an hour. He is on no anticoagulants. 08/01/2021, I'm seeing the patient for a follow-up. Patient is feeling well. Sitting up on a chair. Less short of breath and mucus present and wheezy compared to yesterday. No other new complaints otherwise for now. No altered mentation. No nausea. No vomiting. No diarrhea. No abdominal pain. No chest pain. Echocardiogram was completed and the patient was found to have an ejection fraction of 50-55%. The patient also had moderate concentric LVH and the patient mild to moderate pulmonary hypertension with an estimated PA pressure of 48 mmHg. Meanwhile, the patient was being diuresed. He had a acute kidney injury in the creatinine came up to 1.4 with a mean of 37 and the sodium level of 131. Diuretics will placed on hold for now. History of any chest pain. His atrial fibrillation is still present. Is under better control. The patient is not taking any form of anticoagulants other than Lovenox for DVT prophylaxis. Objective - Vital Signs Vital signs: Vital Signs Temp 97.7 F 08/02/21 04:00 Pulse 79 08/02/21 10:54 Resp 17 08/02/21 10:00 BP 110/79 08/02/21 10:00 Pulse Ox 90 L 08/02/21 10:00 Intake & Output 08/01/21 08/02/21 08/02/21 18:59 06:59 18:59 Intake Total 548.417 380 540.083 Output Total 750 200 300 Balance -201.583 180 240.083 Weight 108.1 kg Intake: IV 180 180 15 .9NS 120 120 10 Diltiazem 125 mg In 60 60 5 Sodium Chloride 0.9% 100 ml @ 5 MG/HR 5 mls/hr IV .Q24H [facility] Rx#:[id number] Intake, IV Titration 118.417 75.083 Amount Diltiazem 125 mg In 118.417 75.083 Sodium Chloride 0.9% 100 ml @ 5 MG/HR 5 mls/hr IV .Q24H [facility] Rx#:[id number] Oral 250 200 450 Output: Urine 750 200 300 Other: # Bowel Movements 1 - Exam Patient is awake and alert currently on 3 L O2 nasal cannula Head exam was generally normal. There was no scleral icterus or corneal arcus. Mucous membranes were moist. Neck was supple and without jugular venous distension, thyromegaly, or carotid bruits. Carotids were easily palpable bilaterally. There was no adenopathy. Significant crowding of posterior pharyngeal metabolic S4 Lungs sounds are diminished and the patient is scheduled extremity cellulitis of the lung his bilaterally. Overall breath sounds are quite diminished Cardiac exam revealed the PMI to be normally situated and sized. The rhythm was regular and no extrasystoles were noted during several minutes of auscultation. The first and second heart sounds irregular and the patient is controlled and rate as the patient is currently on Cardizem drip and the patient was started on oral Cardizem by cardiology. Abdominal exam revealed normal bowel sounds. The abdomen was soft, non-tender, and without masses, organomegaly, or appreciable enlargement of the abdominal aorta. Extremities revealed +1 pitting edema and there is no cyanosis or clubbing. Lower extremity edema is improving and the patient is being diuresed Neurologically the patient is awake and alert and following commands and answering questions - Labs CBC & Chem 7: 08/02/21 05:29 08/02/21 05:29 Labs: Abnormal Lab Results - Last 24 Hours (Table) 08/01/21 08/02/21 08/02/21 Range/Units 12:45 05:29 05:29 WBC 12.5 H (3.8-10.6) k/uL RDW 15.9 H (11.5-15.5) % Neutrophils # 11.5 H (1.3-7.7) k/uL Lymphocytes # 0.5 L (1.0-4.8) k/uL Sodium 131 L (137-145) mmol/L Chloride 91 L (98-107) mmol/L Carbon Dioxide 33 H (22-30) mmol/L BUN 37 H (9-20) mg/dL Creatinine 1.42 H (0.66-1.25) mg/dL Glucose 133 H (74-99) mg/dL POC Glucose (mg/dL) (75-99) mg/dL Urine Protein Trace H (Negative) Urine Glucose (UA) 1+ H (Negative) Urine Blood Small H (Negative) Ur Leukocyte Esterase Large H (Negative) Urine RBC 12 H (0-5) /hpf Urine WBC 105 H (0-5) /hpf Amorphous Sediment Rare H (None) /hpf Hyaline Casts 26 H (0-2) /lpf Urine Mucus Rare H (None) /hpf 08/02/21 Range/Units 11:49 WBC (3.8-10.6) k/uL RDW (11.5-15.5) % Neutrophils # (1.3-7.7) k/uL Lymphocytes # (1.0-4.8) k/uL Sodium (137-145) mmol/L Chloride (98-107) mmol/L Carbon Dioxide (22-30) mmol/L BUN (9-20) mg/dL Creatinine (0.66-1.25) mg/dL Glucose (74-99) mg/dL POC Glucose (mg/dL) 139 H (75-99) mg/dL Urine Protein (Negative) Urine Glucose (UA) (Negative) Urine Blood (Negative) Ur Leukocyte Esterase (Negative) Urine RBC (0-5) /hpf Urine WBC (0-5) /hpf Amorphous Sediment (None) /hpf Hyaline Casts (0-2) /lpf Urine Mucus (None) /hpf Microbiology - Last 24 Hours (Table) 08/01/21 12:45 Urine Culture - Preliminary Urine,Voided Assessment and Plan Plan: 1 acute on chronic hypoxic/hypercapnic respiratory failure due to COPD exacerbation, possibly with a component of CHF. Patient is off BiPAP and the patient is currently on 3 L about 2 by nasal cannula , as the patient's condition is improving with a combination of bronchodilators and steroids. No signs of any CO2 narcosis at this point in time. 2 chronic hypoxic respiratory failure. Oxygen 3 L per minute nasal cannula secondary to COPD 3 advanced COPD with chronic hypoxic respiratory failure and the patient has a component of chronic hypercapnic respiratory failure with secondary metabolic alkalosis. The patient has been maintained on Trelegy Ellipta on outpatient basis 4 chronic atrial fibrillation with rapid ventricular response at time of admission. Note that the patient has not been on any form of anticoagulant on outpatient basis and he was maintained on sotalol, currently still on a Cardizem drip at 10 mg an hour. Oral Cardizem was ordered by cardiology. Echocardiogram shows a preserved LV function with [id number] degree of pulmonary hypertension as stated. 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 8 history of Graves' disease, currently on thyroid hormone replacement 9 history of advanced deficiency maintained on Cortef 10 increased lower extremity edema, currently under investigation 11 bladder cancer the patient has undergone transurethral resection of the bladder tumor and the patient is currently on immunotherapy utilizing Keytruda 12 history of smoking 13 chronic hyponatremia Plan May transfer this patient also had intensive care unit Continue bronchodilators and steroids Keep oxygen at 3 L per minute nasal cannula Continue IV Solu Medrol 60 mg every 6 hours Echocardiogram showed a preserved LV function with moderately of pulmonary hypertension Oral Cardizem for rate control, and cardiology and discontinue the sotalol and they have also discontinue the Cardizem drip and start the patient on Cardizem for rate control. Discontinue the IV Lasix and monitor renal function, encourage oral intake and monitor renal function Restart oral Synthroid continue aspirin Hold immunotherapy for now DO NOT INTUBATE CODE STATUS We'll continue to follow. Note that most of the patient's previous evaluation and treatment has been done through [facility] in [facility].
[2021-08-02] MEDS: FUROSEMIDE 10 MG/ML 4 ML VIAL IV SCH (16:34)
[2021-08-02 18:34] LABS: Folate, Serum 13.5 ng/mL (4.40-31.00)
[2021-08-02 20:49] VITALS: RESP 20
[2021-08-02] MEDS ORDERED: MONTELUKAST 10 MG TAB PO SCH (21:00)
--- NOTE | 2021-08-02 22:17 | P.PN ---
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 Patient has been lethargic and drowsy. Was very short of breath and had to place on BiPAP more often as per his son. Patient has been having symptoms for the past 1 week. No fever no chills. Cough without any sputum production. No nausea vomiting abdominal pain or diarrhea. Patient also has b een having increasing swelling of both legs. Chest x-ray showed right basilar opacity could reflect acute infiltrate/atelectasis. EKG showed atrial fibrillation with rate controlled at 86. ABGs on admission showed pH of 7.24 PCO2 85 PO2 131 and bicarb is 36. Patient was placed on BiPAP in the ER. Other laboratory data showed WBC 6.2 hemoglobin 15.1 platelets 170 sodium 128 potassium 4.2 chloride 90 bicarb is 35 BUN 11 and creatinine 0.83 and blood sugar is 104 calcium 8.0 liver enzymes are elevated troponin x1 - proBNP is 1660 TSH 0.967. 08/01/2021 Patient is in the MICU. Currently off BiPAP. Awake alert and oriented. No complaints of chest pain or worsening shortness of breath. Maintained on 3 L of oxygen via nasal cannula. Currently being continued on Lasix IV. Also on IV steroids and bronchodilators. Patient remains in atrial fibrillation and also being continued on Cardizem drip for heart rate control. Patient does not take any anticoagulation at home. 2D echocardiogram showed ejection fraction 50 to 55% with right ventricle is severely enlarged. Right ventricular systolic pressure is 48.2 mmHg. Moderate concentric left ventricular hypertrophy. Laboratory data showed WBC 4.8 hemoglobin 16.8 and platelets 163 ABG showed pH of 7.24 PCO2 85 and PO2 131 Sodium 129 potassium 4.3 chloride 86 bicarb is 37 BUN 15 and creatinine 0.97 Current medications reviewed. Objective - Vital Signs Vital signs: Vital Signs Temp 98.2 F 08/01/21 12:00 Pulse 73 08/01/21 14:00 Resp 16 08/01/21 14:00 BP 103/73 08/01/21 14:00 Pulse Ox 93 L 08/01/21 14:00 Intake & Output 07/31/21 08/01/21 08/01/21 18:59 06:59 18:59 Intake Total 15 180 370 Output Total 550 300 500 Balance -535 -120 -130 Weight 111.13 kg 106.3 kg Intake: IV 15 180 120 .9NS 10 120 80 Diltiazem 125 mg In 5 60 40 Sodium Chloride 0.9% 100 ml @ 5 MG/HR 5 mls/hr IV .Q24H [facility] Rx#:[id number] Oral 250 Output: Urine 550 300 500 Other: # Voids 0 - Exam PHYSICAL EXAMINATION: Patient is lying in the bed comfortably, no acute distress, awake alert and oriented.. HEENT: Normocephalic. Neck is supple. Pupils reactive. Nostrils clear. Oral cavity is moist. Neck reveals no JVD, carotid bruits, or thyromegaly. CHEST EXAMINATION: Trachea is central. Symmetrical expansion. Bibasilar diminished sounds. No wheezing or rhonchi.. CARDIAC: Normal S1, S2 with no gallops. No murmurs ABDOMEN: Soft. Bowel sounds normal. No organomegaly. No abdominal bruits. Extremities: 2+ edema. No clubbing or cyanosis Neurologically awake, alert, oriented x3 with well-coordinated movements. No focal deficits noted Skin: No rash or skin lesions. Psychiatric: Cooperative. Nonsuicidal Musculoskeletal: No joint swelling or deformity. Normal range of motion. - Labs CBC & Chem 7: 08/02/21 05:29 08/02/21 05:29 Labs: Abnormal Lab Results - Last 24 Hours (Table) 07/31/21 08/01/21 08/01/21 Range/Units 16:25 05:27 05:27 Lymphocytes # 0.5 L (1.0-4.8) k/uL ABG pH (7.35-7.45) ABG pCO2 (35-45) mmHg ABG pO2 (83-108) mmHg ABG HCO3 (21-25) mmol/L ABG Total CO2 (19-24) mmol/L ABG O2 Saturation (94-97) % Sodium 129 L (137-145) mmol/L Chloride 86 L (98-107) mmol/L Carbon Dioxide 37 H (22-30) mmol/L Glucose 129 H (74-99) mg/dL POC Glucose (mg/dL) 110 H (75-99) mg/dL Calcium 8.3 L (8.4-10.2) mg/dL Urine Protein (Negative) Urine Glucose (UA) (Negative) Urine Blood (Negative) Ur Leukocyte Esterase (Negative) Urine RBC (0-5) /hpf Urine WBC (0-5) /hpf Amorphous Sediment (None) /hpf Hyaline Casts (0-2) /lpf Urine Mucus (None) /hpf 08/01/21 08/01/21 Range/Units 10:26 12:45 Lymphocytes # (1.0-4.8) k/uL ABG pH 7.34 L (7.35-7.45) ABG pCO2 75 H* (35-45) mmHg ABG pO2 55 L* (83-108) mmHg ABG HCO3 40 H* (21-25) mmol/L ABG Total CO2 43 H (19-24) mmol/L ABG O2 Saturation 87.4 L (94-97) % Sodium (137-145) mmol/L Chloride (98-107) mmol/L Carbon Dioxide (22-30) mmol/L Glucose (74-99) mg/dL POC Glucose (mg/dL) (75-99) mg/dL Calcium (8.4-10.2) mg/dL Urine Protein Trace H (Negative) Urine Glucose (UA) 1+ H (Negative) Urine Blood Small H (Negative) Ur Leukocyte Esterase Large H (Negative) Urine RBC 12 H (0-5) /hpf Urine WBC 105 H (0-5) /hpf Amorphous Sediment Rare H (None) /hpf Hyaline Casts 26 H (0-2) /lpf Urine Mucus Rare H (None) /hpf Assessment and Plan Assessment: Acute on chronic hypoxic and hypercapnic respiratory failure secondary to COPD exacerbation and possible CHF with increased leg swelling and elevated BNP. was on BiPAP. Acute on chronic CHF with diastolic dysfunction Recent COVID-19 infection in June 2021 Altered mental status/metabolic encephalopathy due to hypercapnia. improved. Hyponatremia Advanced COPD and chronic hypoxic respiratory failure requiring BiPAP intermit tently. Chronic atrial fibrillation rate controlled with sotalol at home. Not on anticoagulation. Obstructive sleep apnea on CPAP at home History of Graves' disease treated with methimazole and is currently on thyroid supplementation. 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 History of bladder cancer status post TURBT and currently on immunotherapy. DVT prophylaxis with heparin subcu Plan: Patient is off BiPAP now. Continue with IV steroids and IV Lasix. Procalcitonin level is not elevated. Levaquin has been discontinued. 2D echocardiogram showed ejection fraction 50 to 20% and moderate left-ventricular hypertrophy. Monitor renal function.Patient is being current on Cardizem drip for heart rate control. Continue with home medications and monitor closely. Prognosis poor at this time. CODE STATUS is DNR/DNI. Time with Patient: Greater than 30
--- NOTE | 2021-08-02 22:23 | P.PN ---
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 Patient has been lethargic and drowsy. Was very short of breath and had to place on BiPAP more often as per his son. Patient has been having symptoms for the past 1 week. No fever no chills. Cough without any sputum production. No nausea vomiting abdominal pain or diarrhea. Patient also has b een having increasing swelling of both legs. Chest x-ray showed right basilar opacity could reflect acute infiltrate/atelectasis. EKG showed atrial fibrillation with rate controlled at 86. ABGs on admission showed pH of 7.24 PCO2 85 PO2 131 and bicarb is 36. Patient was placed on BiPAP in the ER. Other laboratory data showed WBC 6.2 hemoglobin 15.1 platelets 170 sodium 128 potassium 4.2 chloride 90 bicarb is 35 BUN 11 and creatinine 0.83 and blood sugar is 104 calcium 8.0 liver enzymes are elevated troponin x1 - proBNP is 1660 TSH 0.967. 08/01/2021 Patient is in the MICU. Currently off BiPAP. Awake alert and oriented. No complaints of chest pain or worsening shortness of breath. Maintained on 3 L of oxygen via nasal cannula. Currently being continued on Lasix IV. Also on IV steroids and bronchodilators. Patient remains in atrial fibrillation and also being continued on Cardizem drip for heart rate control. Patient does not take any anticoagulation at home. 2D echocardiogram showed ejection fraction 50 to 55% with right ventricle is severely enlarged. Right ventricular systolic pressure is 48.2 mmHg. Moderate concentric left ventricular hypertrophy. Laboratory data showed WBC 4.8 hemoglobin 16.8 and platelets 163 ABG showed pH of 7.24 PCO2 85 and PO2 131 Sodium 129 potassium 4.3 chloride 86 bicarb is 37 BUN 15 and creatinine 0.97 08/02/2021 Patient is in the MICU. Able to serially stay. Currently on oxygen at 3 L via nasal cannula. No complaints of chest pain or shortness of breath. No fever no chills. No cough or sputum production. Patient is being continued methylprednisolone 60 mg every 6 hourly and Symbicort and DuoNeb's. Heart rate is controlled and Cardizem drip has been discontinued. Patient was started Cardizem CD 180 mg daily. Cardiology has seen the patient. Recommends oral anticoagulation. Patient remains in atrial fibrillation. Sotalol has been discontinued. Cardiology and pulmonary is on board. Patient is being transferred to medical floor today. Laboratory data showed sodium 131 potassium 4.5 chloride 91 bicarb is 33 BUN 37 creatinine 1.42 and blood sugar is 133 Urine culture showed skin and genital melly. Current medications reviewed. Objective - Vital Signs Vital signs: Vital Signs Temp 97.7 F 08/02/21 04:00 Pulse 79 08/02/21 10:54 Resp 17 08/02/21 10:00 BP 110/79 08/02/21 10:00 Pulse Ox 90 L 08/02/21 10:00 Intake & Output 08/01/21 08/02/21 08/02/21 18:59 06:59 18:59 Intake Total 548.417 380 540.083 Output Total 750 200 300 Balance -201.583 180 240.083 Weight 108.1 kg Intake: IV 180 180 15 .9NS 120 120 10 Diltiazem 125 mg In 60 60 5 Sodium Chloride 0.9% 100 ml @ 5 MG/HR 5 mls/hr IV .Q24H REJI Rx#:[id number] Intake, IV Titration 118.417 75.083 Amount Diltiazem 125 mg In 118.417 75.083 Sodium Chloride 0.9% 100 ml @ 5 MG/HR 5 mls/hr IV .Q24H REJI Rx#:[id number] Oral 250 200 450 Output: Urine 750 200 300 Other: # Bowel Movements 1 - Exam PHYSICAL EXAMINATION: Patient is lying in the bed comfortably, no acute distress, awake alert and oriented.. HEENT: Normocephalic. Neck is supple. Pupils reactive. Nostrils clear. Oral cavity is moist. Neck reveals no JVD, carotid bruits, or thyromegaly. CHEST EXAMINATION: Trachea is central. Symmetrical expansion. Bibasilar diminished sounds. No wheezing or rhonchi.. CARDIAC: Normal S1, S2 with no gallops. No murmurs ABDOMEN: Soft. Bowel sounds normal. No organomegaly. No abdominal bruits. Extremities: 2+ edema. No clubbing or cyanosis Neurologically awake, alert, oriented x3 with well-coordinated movements. No focal deficits noted Skin: No rash or skin lesions. Psychiatric: Cooperative. Nonsuicidal Musculoskeletal: No joint swelling or deformity. Normal range of motion. - Labs CBC & Chem 7: 08/02/21 05:29 08/02/21 05:29 Labs: Abnormal Lab Results - Last 24 Hours (Table) 08/01/21 08/02/21 08/02/21 Range/Units 12:45 05:29 05:29 WBC 12.5 H (3.8-10.6) k/uL RDW 15.9 H (11.5-15.5) % Neutrophils # 11.5 H (1.3-7.7) k/uL Lymphocytes # 0.5 L (1.0-4.8) k/uL Sodium 131 L (137-145) mmol/L Chloride 91 L (98-107) mmol/L Carbon Dioxide 33 H (22-30) mmol/L BUN 37 H (9-20) mg/dL Creatinine 1.42 H (0.66-1.25) mg/dL Glucose 133 H (74-99) mg/dL POC Glucose (mg/dL) (75-99) mg/dL Urine Protein Trace H (Negative) Urine Glucose (UA) 1+ H (Negative) Urine Blood Small H (Negative) Ur Leukocyte Esterase Large H (Negative) Urine RBC 12 H (0-5) /hpf Urine WBC 105 H (0-5) /hpf Amorphous Sediment Rare H (None) /hpf Hyaline Casts 26 H (0-2) /lpf Urine Mucus Rare H (None) /hpf 08/02/21 Range/Units 11:49 WBC (3.8-10.6) k/uL RDW (11.5-15.5) % Neutrophils # (1.3-7.7) k/uL Lymphocytes # (1.0-4.8) k/uL Sodium (137-145) mmol/L Chloride (98-107) mmol/L Carbon Dioxide (22-30) mmol/L BUN (9-20) mg/dL Creatinine (0.66-1.25) mg/dL Glucose (74-99) mg/dL POC Glucose (mg/dL) 139 H (75-99) mg/dL Urine Protein (Negative) Urine Glucose (UA) (Negative) Urine Blood (Negative) Ur Leukocyte Esterase (Negative) Urine RBC (0-5) /hpf Urine WBC (0-5) /hpf Amorphous Sediment (None) /hpf Hyaline Casts (0-2) /lpf Urine Mucus (None) /hpf Microbiology - Last 24 Hours (Table) 08/01/21 12:45 Urine Culture - Preliminary Urine,Voided Assessment and Plan Assessment: Acute on chronic hypoxic and hypercapnic respiratory failure secondary to COPD exacerbation and possible CHF with increased leg swelling and elevated BNP. was on BiPAP. Acute on chronic CHF with diastolic dysfunction Recent COVID-19 infection in June 2021 Altered mental status/metabolic encephalopathy due to hypercapnia. improved. Hyponatremia Advanced COPD and chronic hypoxic respiratory failure requiring BiPAP intermittently. Chronic atrial fibrillation rate with RVR. Not on anticoagulation. off cardizem drip-->PO Obstructive sleep apnea on CPAP at home History of Graves' disease treated with methimazole and is currently on thyroid supplementation. 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 History of bladder cancer status post TURBT and currently on immunotherapy. DVT prophylaxis with heparin subcu Plan: Patient is off BiPAP now. Continue with IV steroids . Procalcitonin level is not elevated. Levaquin has been discontinued. 2D echocardiogram showed ejection fraction 50 to 20% and moderate left-ventricular hypertrophy. Monitor renal function.Patient was on Cardizem drip for heart rate control. chnaged to PO. Continue with home medications and monitor closely. Prognosis poor at this time. CODE STATUS is DNR/DNI. Time with Patient: Greater than 30
[2021-08-02] MEDS ORDERED: ERGOCALCIFEROL 1,250 MCG (50,000 IU) CAPSULE PO SCH (22:30)
[2021-08-03] MEDS: methylPREDNISolone SOD SUCCI 125 MG/2 ML VIAL IV SCH (05:47)
[2021-08-03] MEDS ORDERED: LEVOTHYROXINE 100 MCG TAB PO SCH (06:30)
[2021-08-03] MEDS: SYMBICORT 80-4.5 MCG INHALER INHALATION SCH ×2 (07:21→07:26)
[2021-08-03] MEDS: IPRATROPIUM-ALBUTEROL 3 ML NEB INHALATION SCH ×3 (07:21→15:50)
[2021-08-03] MEDS: CYANOCOBALAMIN 500 MCG TAB PO SCH (07:46)
[2021-08-03] MEDS: ASPIRIN 81 MG PO SCH (07:47)
[2021-08-03] MEDS: PANTOPRAZOLE 40 MG/10 ML VIAL IVP SCH (07:47)
[2021-08-03] MEDS: ENOXAPARIN 40 MG/0.4 ML SYRINGE SQ SCH (07:48)
[2021-08-03] MEDS: DILTIAZEM CD 180 MG CAP.ER.24H PO SCH (09:00)
[2021-08-03 09:17] LABS: African American GFR (CKD) 54.3 (60.0-200.0); Anion Gap 9.4 mmol/L (10.00-18.00); BUN/Creat Ratio 21.8 Ratio (12.00-20.00); Blood Urea Nitrogen 32.7 mg/dL (9.0-27.0); Carbon Dioxide 33.6 mmol/L (20.0-27.5); Non-African American GFR(CKD) 46.8 (60.0-200.0); Potassium 4.3 mmol/L (3.5-5.5)
[2021-08-03] MEDS ORDERED: dexAMETHasone 4 MG TAB PO SCH (09:30)
--- NOTE | 2021-08-03 10:39 | P.NPCON ---
History of Present Illness - Reason for Consult acute renal failure - History of Present Illness Reason for consultation: Acute kidney injury on chronic kidney disease History of present illness: Patient is a 70-year-old male seen in renal consultation for acute kidney injury on chronic kidney disease. Patient has chronic kidney disease stage II with baseline creatinine near 1 secondary to solitary kidney. 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 Patient presented to the hospital with worsening shortness of breath and hypoxia for about one week. Patient has history of COPD and does wear home oxygen as needed. Creatinine is 1.5 today. He is receiving steroids as well as bronchodilator therapy. Patient also went into A. fib with RVR this admission and was initially on sotalol but is now on Cardizem. Echocardiogram showed preserved ejection fraction with moderate pulmonary hypertension. He's currently on 3 L is a cannula. Blood pressure stable. Denies chest pain. No vomiting or diarrhea. Oral intake is fair. Patient did receive IV Lasix for CHF this admission but now discontinued. Has been voiding. No hematuria. Denies use of nonsteroidals. No history of diab etes. Vital signs are stable. General: The patient appeared well nourished and normally developed. HEENT: Head exam is unremarkable. LUNGS: Breath sounds decreased. HEART: Rate and Rhythm are regular. ABDOMEN: Soft, no distention. EXTREMITITES: No edema. Past Medical History Past Medical History: Asthma, COPD Additional Past Medical History / Comment(s): bladder CA, pt states he donated one kidney History of Any Multi-Drug Resistant Organisms: None Reported Past Surgical History: Unable to Obtain Additional Past Surgical History / Comment(s): TUBT/transurethral resection of bladder tumor, nephrectomy for kidney donation, elbow surgery Past Anesthesia/Blood Transfusion Reactions: Previous Problems w/ Anesthesia Additional Past Anesthesia/Blood Transfusion Reaction / Comment(s): hard time waking up Past Psychological History: No Psychological Hx Reported Smoking Status: Current every day smoker Past Alcohol Use History: None Reported Past Drug Use History: None Reported Medications and Allergies Home Medications Medication Instructions Recorded Confirmed Type Aspirin [Adult Low Dose Aspirin EC] 81 mg PO DAILY 11/15/19 07/31/21 History Losartan [Cozaar] 50 mg PO DAILY 11/15/19 07/31/21 History Albuterol Nebulized [Ventolin 2.5 mg INHALATION RT-Q4H PRN 07/21/20 07/31/21 History Nebulized] Cyanocobalamin (Vitamin B-12) 1,000 mcg PO DAILY 07/31/21 07/31/21 History [Vitamin B-12] Fluticasone/Umeclidin/Vilanter 1 puff INHALATION RT-DAILY 07/31/21 07/31/21 History [Trelegy Ellipta 100-62.5-25] Hydrocortisone [Cortef] 10 mg PO HS 07/31/21 07/31/21 History Hydrocortisone [Cortef] 20 mg PO DAILY 07/31/21 07/31/21 History Levothyroxine Sodium [Synthroid] 100 mcg PO [id number] 07/31/21 07/31/21 History Levothyroxine Sodium [Synthroid] 200 mcg PO MIRZA 07/31/21 07/31/21 History Montelukast [Singulair] 10 mg PO HS 07/31/21 07/31/21 History Omeprazole 20 mg PO DAILY 07/31/21 07/31/21 History Sotalol [Betapace] 80 mg PO BID 07/31/21 07/31/21 History traZODone HCL 150 mg PO HS PRN 07/31/21 07/31/21 History Allergies Allergy/AdvReac Type Severity Reaction Status Date / Time bee venom protein (honey bee) Allergy Anaphylaxis Verified 07/31/21 14:12 cefaclor [From [facility]] Allergy Rash/Hives Verified 07/31/21 14:12 ibuprofen Allergy only has 1 Verified 07/31/21 14:12 kidney morphine AdvReac Nausea & Verified 07/31/21 14:12 Vomiting Physical Exam Vitals: Vital Signs Temp Pulse Pulse Pulse Resp BP BP 08/03/21 07:55 108 H 20 123/85 08/03/21 07:34 84 08/03/21 07:22 80 08/03/21 05:00 97.6 F 92 20 110/68 08/02/21 20:00 97.3 F L 91 20 109/67 08/02/21 19:21 84 08/02/21 19:16 82 08/02/21 15:13 82 08/02/21 14:59 78 08/02/21 12:00 81 15 119/81 08/02/21 10:54 79 08/02/21 10:45 74 Pulse Ox 08/03/21 07:55 90 L 08/03/21 07:34 08/03/21 07:22 08/03/21 05:00 92 L 08/02/21 20:00 92 L 08/02/21 19:21 08/02/21 19:16 08/02/21 15:13 08/02/21 14:59 08/02/21 12:00 91 L 08/02/21 10:54 08/02/21 10:45 Intake and Output 08/02/21 08/03/21 08/03/21 22:59 06:59 14:59 Intake Total 400 Output Total 300 150 Balance -300 400 -150 Intake: Oral 400 Output: Urine 300 150 Other: Voiding Method Urinal # Voids 3 Results - Lab Results Most recent lab results ABG pH 7.34 (7.35-7.45) L 08/01/21 10:26 ABG pCO2 75 mmHg (35-45) H* 08/01/21 10:26 ABG pO2 55 mmHg (83-108) L* 08/01/21 10:26 ABG HCO3 40 mmol/L (21-25) H* 08/01/21 10:26 ABG O2 Saturation 87.4 % (94-97) L 08/01/21 10:26 Calcium 9.0 mg/dL (8.7-10.3) 08/03/21 06:04 Magnesium 2.0 mg/dL (1.5-2.4) 08/03/21 06:04 08/02/21 05:29 08/03/21 06:04 Assessment and Plan Plan: Assessment: 1. Acute kidney injury secondary to ATN secondary to hemodynamic instability and cardiorenal. Creatinine 1.5 today. 2. Chronic kidney disease stage II with baseline creatinine near 1 secondary to solitary kidney. 3. A. fib maintained on Cardizem. 4. Acute on chronic diastolic CHF and mild to moderate pulmonary hypertension. Status post diuresis. 5. History of adrenal insufficiency maintained on steroids. 6. COPD exacerbation. Plan: Check renal ultrasound. Continue to hold diuretics. Avoid nephrotoxins. Continue to monitor renal function and urine output. Thank you for the consultation. I will continue to follow the patient with you during his hospital stay.
[2021-08-03 12:47] LABS: Appearance,Urine Cloudy (Clear); Bilirubin,Urine Negative (Negative); Blood,Urine Small (Negative); Color,Urine Yellow; Glucose,Urine (UA) Negative (Negative); Ketones,Urine Negative (Negative); Leukocyte Esterase,Urine Large (Negative); Nitrite,Urine Negative (Negative); Protein,Urine 1+ (Negative); RBC,Urine <1 /hpf (0-5); Specific Gravity,Urine 1.029 (1.001-1.035); Urobilinogen,Urine <2.0 mg/dL (<2.0)
--- NOTE | 2021-08-03 13:12 | P.PN ---
<Veronica Thomason M - Last Filed: 08/03/21 12:39> Subjective Progress Note Date: 08/03/21 Principal diagnosis: Shortness of breath, altered mentation 70-year-old male patient with known history of COPD and bladder cancer who was being evaluated and seen at the oncologist office for ongoing immunotherapy as the patient is receiving keytruda therapy. The patient has already received 2 doses. On today's evaluation, the patient was found to be lethargic, having altered mentation, hallucinations and lethargy. Based on that, he was asked to come into the hospital for further evaluation and he was sent to the emergency department. He is known to have chronic hypercapnia related to his COPD. He also has obstructive sleep apnea. He hasn't been able to use his CPAP as the patient did not have the appropriate mask. His can slider and sleep specialist are from [facility] in [place]. The patient has been maintained on Trelegy Ellipta as maintenance regarding his COPD. He has had previous episodes of hypercapnic respiratory failure requiring BiPAP therapy and previous hospitalization at [facility]. The patient is a DO NOT INTUBATE CODE STATUS. Currently, the patient is on a BiPAP at a pressure of 14/6 with an FiO2 of 40%. Is able to generate a tidal volume of 4 50 mL and his minute ventilation is around 9 L per minute. He seems to be quite comfortable on the BiPAP. His chest x-ray showed a Mediport in the right chest. The patient also has a right basal opacity could reflect atelectasis. There is also some background COPD. Osseous structures are intact. The patient has mild cardiomegaly. No evidence of any pneumothorax or consolidations. At this point in time, has a white cell count of 6.2 with a hemoglobin of 15.2 and a platelet count of 170. Blood gases prior to BiPAP therapy showed a pH of 7.24 with a pCO2 of 85 and pO2 of 131. Sodium level is at 128 and the family tells me that the patient has had issues with hyponatremia earlier. He was started on salt tablets. Serum bicarb is 35 consistent with chronic hypercapnic respiratory failure and chronic metabolic alkalosis. LFTs are normal. ProBNP level is 1660 and a TSH level is at 0.967. Troponins are negative and the proBNP level is 1660 and the patient has been in atrial fibrillation with rapid ventricular response and the current heart rate is irregular at the rate of 120. He is arousable. Goes to sleep if left unstimulated. No reported chest pain. No angina. No palpitation. He has developed increased swelling in lower extremity is bilaterally. The patient COVID 19 infection back in general 2021 and the patient was given monoclonal antibodies. He was also treated with steroids. On today's evaluation of syncopal thousand and 22, the patient is slightly more alert and awake compared to yesterday. He is following commands. 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 He was somewhat hostile with the physical therapy to the nursing staff. He was also angry with me. Most of his physicians are [facility]. He was quite comfortable on a BiPAP. I took him off the BiPAP and put him on [address] by nasal cannula. His subsequent blood gases showed some improvement and acid base status and the patient was at 7.34 with a pCO2 of 75 and a pO2 of 55. This was on 3 L approximately nasal cannula. He remains on IV Lasix. He was given empiric antibiotic coverage with Levaquin. His white count was at 4.8 with hemoglobin 16.8. Creatinine is stable and a creatinine of 0.97 with a mean of 15 his sodium level is at 129. echocardiogram was completed today and the patient was found to have a preserved LV function with an ejection fraction of 50-55%. There was moderate degree of pulmonary hypertension with a PA pressure of 48. There was also evidence of moderate concentric LVH. No significant valvular abnormalities. The patient remains on bronchodilators. The patient remains on systemic steroids. The patient remains in atrial fibrillation. The patient remains on a Cardizem drip for rate control. Cardizem drip is running at 5 mg an hour. He is on no anticoagulants. 08/01/2021, I'm seeing the patient for a follow-up. Patient is feeling well. Sitting up on a chair. Less short of breath and mucus present and wheezy compared to yesterday. No other new complaints otherwise for now. No altered mentation. No nausea. No vomiting. No diarrhea. No abdominal pain. No chest pain. Echocardiogram was completed and the patient was found to have an ejection fraction of 50-55%. The patient also had moderate concentric LVH and the patient mild to moderate pulmonary hypertension with an estimated PA pr essure of 48 mmHg. Meanwhile, the patient was being diuresed. He had a acute kidney injury in the creatinine came up to 1.4 with a mean of 37 and the sodium level of 131. Diuretics will placed on hold for now. History of any chest pain. His atrial fibrillation is still present. Is under better control. The patient is not taking any form of anticoagulants other than Lovenox for DVT prophylaxis. On 08/03/2021 patient seen in follow-up. He is awake and alert, in no acute distress, he is currently on 3 L of oxygen, the pulse ox of 90%, no fever or chills, hemodynamically stable. He did wear BiPAP support last night with pressures of 14 and 6 and FiO2 of 40%, satting 92%. Hemodynamically stable, accompanied chest pain, his breathing has improved, no altered mentation. No acute meds overnight. Patient continues on breathing treatments. His diuretics are on hold right now. Heart rate is controlled, but patient in Afib. Objective - Vital Signs Vital signs: Vital Signs Temp 97.6 F 08/03/21 05:00 Pulse 84 08/03/21 11:17 Resp 20 08/03/21 07:55 BP 123/85 08/03/21 07:55 Pulse Ox 90 L 08/03/21 07:55 Intake & Output 08/02/21 08/03/21 08/03/21 18:59 06:59 18:59 Intake Total 540.083 400 Output Total 600 150 Balance -59.917 400 -150 Intake: IV 15 .9NS 10 Diltiazem 125 mg In 5 Sodium Chloride 0.9% 100 ml @ 5 MG/HR 5 mls/hr IV .Q24H REJI Rx#:[id number] Intake, IV Titration 75.083 Amount Diltiazem 125 mg In 75.083 Sodium Chloride 0.9% 100 ml @ 5 MG/HR 5 mls/hr IV .Q24H REJI Rx#:[id number] Oral 450 400 Output: Urine 600 150 Other: Voiding Method Urinal # Voids 3 - Exam GENERAL EXAM: Alert, very pleasant, 3 l/min, with pulse ox of 90%, comfortable in no apparent distress. HEAD: Normocephalic/atraumatic. EYES: Normal reaction of pupils, equal size. Conjunctiva pink, sclera white. NOSE: Clear with pink turbinates. THROAT: No erythema or exudates. NECK: No masses, no JVD, no thyroid enlargement, no adenopathy. CHEST: No chest wall deformity. Symmetrical expansion. LUNGS: Equal air entry with no crackles, wheeze, rhonchi or dullness. CVS: Regular rate and rhythm, normal S1 and S2, no gallops, no murmurs, no rubs ABDOMEN: Soft, nontender. No hepatosplenomegaly, normal bowel sounds, no guarding or rigidity. EXTREMITIES: No clubbing, no edema, no cyanosis, 2+ pulses and upper and lower extremities. MUSCULOSKELETAL: Muscle strength and tone normal. SPINE: No scoliosis or deformity SKIN: No rashes CENTRAL NERVOUS SYSTEM: Alert and oriented -3. No focal deficits, tone is normal in all 4 extremities. PSYCHIATRIC: Alert and oriented -3. Appropriate affect. Intact judgment and insight. - Labs CBC & Chem 7: 08/02/21 05:29 08/03/21 06:04 Labs: Abnormal Lab Results - Last 24 Hours (Table) 08/02/21 08/03/21 Range/Units 05:32 06:04 Chloride 92 L (96-109) mmol/L Carbon Dioxide 33.6 H (20.0-27.5) mmol/L Anion Gap 9.40 L (10.00-18.00) mmol/L BUN 32.7 H (9.0-27.0) mg/dL Est GFR (CKD-EPI)AfAm 54.3 L (60.0-200.0) Est GFR (CKD-EPI)NonAf 46.8 L (60.0-200.0) BUN/Creatinine Ratio 21.80 H (12.00-20.00) Ratio Glucose 149 H (70-110) mg/dL Vitamin B12 1651.0 H (200.0-944.0) pg/mL Vitamin D 25-Hydroxy 20.2 L (30.0-100.0) ng/mL Microbiology - Last 24 Hours (Table) 08/01/21 12:45 Urine Culture - Final Urine,Voided Assessment and Plan Plan: Assessment: 1 acute on chronic hypoxic/hypercapnic respiratory failure due to COPD exacerbation, possibly with a component of CHF. Patient is off BiPAP and the patient is currently on 3 L about 2 by nasal cannula , as the patient's condi tion is improving with a combination of bronchodilators and steroids. No signs of any CO2 narcosis at this point in time. 2 chronic hypoxic respiratory failure. Oxygen 3 L per minute nasal cannula secondary to COPD 3 advanced COPD with chronic hypoxic respiratory failure and the patient has a component of chronic hypercapnic respiratory failure with secondary metabolic alkalosis. The patient has been maintained on Trelegy Ellipta on outpatient basis 4 chronic atrial fibrillation with rapid ventricular response at time of admission. Note that the patient has not been on any form of anticoagulant on outpatient basis and he was maintained on sotalol, currently still on a Cardizem drip at 10 mg an hour. Oral Cardizem was ordered by cardiology. Echocardiogram shows a preserved LV function with [id number] degree of pulmonary hypertension as stated. 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 8 history of Graves' disease, currently on thyroid hormone replacement 9 history of advanced deficiency maintained on Cortef 10 increased lower extremity edema, currently under investigation 11 bladder cancer the patient has undergone transurethral resection of the bladder tumor and the patient is currently on immunotherapy utilizing Keytruda 12 history of smoking 13 chronic hyponatremia, improved, currently diuretics are on hold Plan: Vital signs are stable, patient has had no acute events overnight Diuretics remain on hold Today's labs have been reviewed Anticoagulation and rate control medications per cardiology From pulmonary SPECT patient can be considered for discharge home today he can resume his home dose of hydrocortisone 20 mg in the morning, 10 mg at night He can resume his nebulized albuterol, and he can resume his Trelegy, Singulair, and and patient has home oxygen His CPAP machine has been arranged through [facility], and he is supposed to have it today or tomorrow Outpatient follow-up with Dr. Sebastina per patient's request, patient was to get established with a local can slider, senior training and development rep I have personally seen and examined the patient, performed the documentation and the assessment and plan as written. Number of minutes spent on the visit: [10] Time with Patient: Less than 30 <Santosh Sebastian - Last Filed: 08/03/21 15:32> Objective - Vital Signs Vital signs: Vital Signs Temp 97.5 F L 08/03/21 13:00 Pulse 110 H 08/03/21 13:00 Resp 20 08/03/21 13:00 BP 138/84 08/03/21 13:00 Pulse Ox 93 L 08/03/21 13:00 Intake & Output 08/02/21 08/03/21 08/03/21 18:59 06:59 18:59 Intake Total 540.083 400 Output Total 600 150 Balance -59.917 400 -150 Intake: IV 15 .9NS 10 Diltiazem 125 mg In 5 Sodium Chloride 0.9% 100 ml @ 5 MG/HR 5 mls/hr IV .Q24H REJI Rx#:[id number] Intake, IV Titration 75.083 Amount Diltiazem 125 mg In 75.083 Sodium Chloride 0.9% 100 ml @ 5 MG/HR 5 mls/hr IV .Q24H REJI Rx#:[id number] Oral 450 400 Output: Urine 600 150 Other: Voiding Method Urinal # Voids 3 - Labs CBC & Chem 7: 08/02/21 05:29 08/03/21 06:04 Labs: Abnormal Lab Results - Last 24 Hours (Table) 08/02/21 08/03/21 08/03/21 Range/Units 05:32 06:04 12:30 Chloride 92 L (96-109) mmol/L Carbon Dioxide 33.6 H (20.0-27.5) mmol/L Anion Gap 9.40 L (10.00-18.00) mmol/L BUN 32.7 H (9.0-27.0) mg/dL Est GFR (CKD-EPI)AfAm 54.3 L (60.0-200.0) Est GFR (CKD-EPI)NonAf 46.8 L (60.0-200.0) BUN/Creatinine Ratio 21.80 H (12.00-20.00) Ratio Glucose 149 H (70-110) mg/dL Vitamin B12 1651.0 H (200.0-944.0) pg/mL Vitamin D 25-Hydroxy 20.2 L (30.0-100.0) ng/mL Urine Protein 1+ H (Negative) Urine Blood Small H (Negative) Ur Leukocyte Esterase Large H (Negative) Urine WBC >150 H (0-5) /hpf Urine Bacteria Moderate H (None) /hpf Microbiology - Last 24 Hours (Table) 08/01/21 12:45 Urine Culture - Final Urine,Voided Assessment and Plan Plan: I have personally seen and examined the patient and reviewed the documentation. I performed a joint evaluation with the nurse practitioner in this evaluation was done more than 20 minutes. I fully agree with the documentation above and the plan of care.
[2021-08-03 13:13] VITALS: BP 138/84; PULSE 110; TEMP 97.5
[2021-08-03 13:14] LABS: Bacteria,Urine Moderate /hpf; WBC,Urine >150 /hpf (0-5)
[2021-08-03] MEDS ORDERED: CHOLECALCIFEROL 125 MCG (5000 IU) TABLET PO SCH (13:45)
--- NOTE | 2021-08-03 13:52 | US ---
EXAMINATION TYPE: US kidneys/renal and bladder DATE OF EXAM: 08/03/2021 COMPARISON: PET scan dated 03/21/2021 CLINICAL HISTORY: bea. Abnormal BEA, SOB, Left nephrectomy due to Kidney donation EXAM MEASUREMENTS: Right Kidney: 11.0 x 6.2 x5.9 cm Left Kidney: Surgically absent cm Right Kidney: No hydronephrosis or masses seen Left Kidney: Surgically absent Bladder: Limited, not fully distended Bilateral Jets seen: not at this time Left nephrectomy, Bladder not fully distended, No abnormalities seen at this time. IMPRESSION: Previous left nephrectomy. Unremarkable right kidney. Nondistended urinary bladder.
--- NOTE | 2021-08-03 18:40 | P.PN ---
Subjective Progress Note Date: 08/03/21 Principal diagnosis: COPD Exacerbation Renal function continues to trend up, today only mildly. nephrology has evaluated patient. Breathing is stable. Transferred from regular medical floor overnight, plan to follow-up in office next week to recheck renal function Objective - Vital Signs Vital signs: Vital Signs Temp 97.5 F L 08/03/21 13:00 Pulse 110 H 08/03/21 13:00 Resp 20 08/03/21 13:00 BP 138/84 08/03/21 13:00 Pulse Ox 93 L 08/03/21 13:00 Intake & Output 08/02/21 08/03/21 08/03/21 18:59 06:59 18:59 Intake Total 540.083 400 Output Total 600 150 Balance -59.917 400 -150 Intake: IV 15 .9NS 10 Diltiazem 125 mg In 5 Sodium Chloride 0.9% 100 ml @ 5 MG/HR 5 mls/hr IV .Q24H REJI Rx#:[id number] Intake, IV Titration 75.083 Amount Diltiazem 125 mg In 75.083 Sodium Chloride 0.9% 100 ml @ 5 MG/HR 5 mls/hr IV .Q24H REJI Rx#:[id number] Oral 450 400 Output: Urine 600 150 Other: Voiding Method Urinal # Voids 3 - Constitutional General appearance: Present: cooperative - EENT Eyes: Present: EOMI ENT: Present: hard of hearing, NA/AT - Neck Neck: Present: normal ROM - Respiratory Respiratory: bilateral: CTA - Cardiovascular Rhythm: regularly irregular - Gastrointestinal General gastrointestinal: Present: soft - Integumentary Integumentary: Present: pale - Musculoskeletal Musculoskeletal: Present: generalized weakness - Psychiatric Psychiatric: Present: A&O x's 3 - Labs CBC & Chem 7: 08/02/21 05:29 08/03/21 06:04 Labs: Abnormal Lab Results - Last 24 Hours (Table) 08/02/21 08/03/21 08/03/21 Range/Units 05:32 06:04 12:30 Chloride 92 L (96-109) mmol/L Carbon Dioxide 33.6 H (20.0-27.5) mmol/L Anion Gap 9.40 L (10.00-18.00) mmol/L BUN 32.7 H (9.0-27.0) mg/dL Est GFR (CKD-EPI)AfAm 54.3 L (60.0-200.0) Est GFR (CKD-EPI)NonAf 46.8 L (60.0-200.0) BUN/Creatinine Ratio 21.80 H (12.00-20.00) Ratio Glucose 149 H (70-110) mg/dL Vitamin B12 1651.0 H (200.0-944.0) pg/mL Vitamin D 25-Hydroxy 20.2 L (30.0-100.0) ng/mL Urine Protein 1+ H (Negative) Urine Blood Small H (Negative) Ur Leukocyte Esterase Large H (Negative) Urine WBC >150 H (0-5) /hpf Urine Bacteria Moderate H (None) /hpf Microbiology - Last 24 Hours (Table) 08/01/21 12:45 Urine Culture - Final Urine,Voided Assessment and Plan (1) Acute exacerbation of chronic obstructive pulmonary disease Status: Acute Code(s): J44.1 - CHRONIC OBSTRUCTIVE PULMONARY DISEASE W (ACUTE) EXACERBATION SNOMED Code(s): 184975070 (2) Malignant neoplasm of bladder, unspecified Status: Acute Code(s): C67.9 - MALIGNANT NEOPLASM OF BLADDER, UNSPECIFIED SNOMED Code(s): 236206294 (3) Acute kidney injury Narrative/Plan: Acute kidney injury secondary to ATN secondary to hemodynamic instability and cardiorenal. Diuretics on hold and nephrology is following Status: Acute Code(s): N17.9 - ACUTE KIDNEY FAILURE, UNSPECIFIED SNOMED Code(s): 13790058 Plan: Hold Keytruda until after cleared by pulmonology Continue treatment of respiratory failure and CHF per ICU Continue supportive care, patient is looking better today Follow-up scheduled prior to restarting Keytruda in office next week, will need recheck Renal function Doctor attests: I performed a history and physical examination of this patient, developed impression and plan of care, discussed with dictator. I agree with dictators note, documented as a scribe.
[2021-08-04 12:19] LABS: Methylmalonic Acid 0.2 umol/L (<0.40)
[2021-08-05] MEDS ORDERED: LEVOTHYROXINE 100 MCG TAB PO SCH (06:30)
== END 2021-08-03 16:07 | disposition home or self-care (01) | DRG 190 ==
LOC: EC 10:30 → 3SCARD 13:27 → 2SICU 16:22 → 5NMEDONC 08-02 16:25
PROVIDERS: ADMIT Internal Medicine; ATTEND Internal Medicine
PROC: 5A09357 Assistance with Respiratory Ventilation, Less than 24 Consecutive Hours, Continuous Positive Airway Pressure (ICD-10-PCS; principal; 2021-07-31)
DX: J44.1 Chronic obstructive pulmonary disease with (acute) exacerbation (principal); J96.21 Acute and chronic respiratory failure with hypoxia; N17.0 Acute kidney failure with tubular necrosis; I50.33 Acute on chronic diastolic (congestive) heart failure; G93.41 Metabolic encephalopathy; J96.22 Acute and chronic respiratory failure with hypercapnia; I48.20 Chronic atrial fibrillation, unspecified; E27.40 Unspecified adrenocortical insufficiency; E87.1 Hypo-osmolality and hyponatremia; E87.3 Alkalosis; I13.0 Hypertensive heart and chronic kidney disease with heart failure and stage 1 through stage 4 chronic kidney disease, or unspecified chronic kidney disease; N18.2 Chronic kidney disease, stage 2 (mild); Z86.16 Personal history of COVID-19; R91.1 Solitary pulmonary nodule; E05.00 Thyrotoxicosis with diffuse goiter without thyrotoxic crisis or storm; I27.20 Pulmonary hypertension, unspecified; Z99.81 Dependence on supplemental oxygen; Z66 Do not resuscitate; C67.9 Malignant neoplasm of bladder, unspecified; Z90.6 Acquired absence of other parts of urinary tract; E66.01 Morbid (severe) obesity due to excess calories; Z68.33 Body mass index [BMI] 33.0-33.9, adult; F17.210 Nicotine dependence, cigarettes, uncomplicated; G47.33 Obstructive sleep apnea (adult) (pediatric); Z79.52 Long term (current) use of systemic steroids; Z79.82 Long term (current) use of aspirin; Z79.890 Hormone replacement therapy; Z79.899 Other long term (current) drug therapy; Z85.51 Personal history of malignant neoplasm of bladder; Z90.5 Acquired absence of kidney; Z91.19 Patient's noncompliance with other medical treatment and regimen; Z63.4 Disappearance and death of family member; Z98.890 Other specified postprocedural states
CPT/HCPCS: 36415; 36600; 71045; 71046; 76770; 80048; 80053; 81001; 82306; 82607; 82652; 82746; 82805; 83735; 83880; 83921; 84145; 84443; 84484; 85025; 85610; 85730; 87086; 93005; 93306; 94640; 94660; 96374; 96375; 99291